=== PATIENT | female | born 1990 | race American Indian/Alaskan Native ===

== ENCOUNTER 2017-05-14 21:52 | Emergency (ER) | payer OTHER ==
[2017-05-14 22:32] VITALS: BMI 34.4
[2017-05-14 22:42] VITALS: TEMP 98.6
--- NOTE | 2017-05-14 22:42 | ED PDOC ---
Arrival/HPI - General Chief Complaint: ENT Problem Time Seen by Provider: 05/14/17 22:41 Historian: Patient - History of Present Illness Narrative History of Present Illness (Text): 05/14/17 22:41 26 y/o female, no significant pmh, nkda, last tetanus under 5 years ago, c/o lt. ear bleeding and muffling sound with water inside the left ear s/p poke the left ear with the q-tip at home while cleaning. Pt. stated that she can still hear from the left ear but feels clogged, no dizziness, no change in vision, no numbness or tingling, no rash, no other medical or psychological complaints. Past Medical History - Provider Review Nursing Documentation Reviewed: Yes - Infectious Disease Hx of Infectious Diseases: None - Cardiac Hx Cardiac Disorders: No - Pulmonary Hx Respiratory Disorders: No - Neurological Hx Neurological Disorder: No - HEENT Hx HEENT Disorder: No - Renal Hx Renal Disorder: No - Endocrine/Metabolic Hx Endocrine Disorders: No - Hematological/Oncological Hx Blood Disorders: No - Integumentary Hx Dermatological Disorder: No - Musculoskeletal/Rheumatological Hx Musculoskeletal Disorders: No - Gastrointestinal Hx Gastrointestinal Disorders: No - Genitourinary/Gynecological Hx Genitourinary Disorders: Yes Other/Comment: PCOS - Psychiatric Hx Psychophysiologic Disorder: No Hx Substance Use: No - Anesthesia Hx Anesthesia: No Family/Social History - Physician Review Nursing Documentation Reviewed: Yes Family/Social History: Unknown Family HX Smoking Status: Light Smoker < 10 Cigarettes Daily Hx Alcohol Use: Yes Frequency of alcohol use: Socially Hx Substance Use: No Allergies/Home Meds Allergies/Adverse Reactions: Allergies No Known Allergies Allergy (Verified 03/21/15 21:49) Review of Systems - Review of Systems Constitutional: absent: Fatigue, Fevers Eyes: absent: Vision Changes ENT: Other (Lt. ear pain and bleeding). absent: Hearing Changes Respiratory: absent: SOB, Cough Cardiovascular: absent: Chest Pain, Syncope Gastrointestinal: absent: Abdominal Pain, Diarrhea, Nausea, Vomiting Skin: absent: Rash, Pruritis Neurological: absent: Headache, Dizziness Psychiatric: absent: Anxiety, Depression Physical Exam Vital Signs Reviewed: Yes Vital Signs Temp Pulse Resp BP Pulse Ox 05/14/17 22:39 98.6 F 97 H 18 153/91 H 100 Temperature: Afebrile Blood Pressure: Normal Pulse: Regular Respiratory Rate: Normal Appearance: Positive for: Well-Appearing, Non-Toxic, Comfortable Pain Distress: Mild Mental Status: Positive for: Alert and Oriented X 3 - Systems Exam Head: Present: Atraumatic, Normocephalic Pupils: Present: PERRL Extroacular Muscles: Present: EOMI Conjunctiva: Present: Normal Ears: Present: Other (Ears: Lt. TM noted to have blood tinged dot noted and auditory canal with bright red blood with possible TM perforation, rt. TM katie color and intact, rt. auditory canal is non-erythematous, no mastoid tenderness , bilateral hearing is grossly equal. ) Mouth: Present: Moist Mucous Membranes Pharnyx: No: ERYTHEMA, EXUDATE, TONSILS ENLARGED Neck: Present: Normal Range of Motion, Trachea Midline. No: MIDLINE TENDERNESS , Paraspinal Tenderness, Lymphadenopathy Respiratory/Chest: Present: Clear to Auscultation, Good Air Exchange. No: Respiratory Distress, Accessory Muscle Use Cardiovascular: Present: Regular Rate and Rhythm, Normal S1, S2. No: Murmurs Abdomen: Present: Normal Bowel Sounds. No: Tenderness, Distention, Peritoneal Signs Back: Present: Normal Inspection Upper Extremity: Present: Normal Inspection. No: Cyanosis, Edema Lower Extremity: Present: Normal Inspection. No: Edema Neurological: Present: GCS=15, CN II-XII Intact, Speech Normal, Motor Func Grossly Intact, Gait Normal, Memory Normal Skin: Present: Warm, Dry, Normal Color. No: Rashes Psychiatric: Present: Alert, Oriented x 3, Normal Insight, Normal Concentration Medical Decision Making ED Course and Treatment: 05/14/17 23:01 -Augmentin and cipro otic -Discharge home with augmentin, cipro otic, naproxen for pain, keep the left ear dry and clean, follow up with your own pmd and ENT within 2 days, return to the ER for any new or worsening signs or symptoms. - PA / APPLICATION SYSTEMS ENGINEER / Resident Statement MD/DO has reviewed & agrees with the documentation as recorded. Disposition/Present on Arrival - Present on Arrival Any Indicators Present on Arrival: No History of DVT/PE: No History of Uncontrolled Diabetes: No Urinary Catheter: No History of Decub. Ulcer: No History Surgical Site Infection Following: None - Disposition Have Diagnosis and Disposition been Completed?: Yes Diagnosis: Ear injury, Ruptured ear drum Disposition: HOME/ ROUTINE Disposition Time: 23:02 Patient Plan: Discharge Patient Problems: Current Active Problems Problem Status Onset Ear injury Acute Ruptured ear drum Acute Condition: GOOD Additional Instructions: -Discharge home with augmentin, cipro otic, naproxen for pain, keep the left ear dry and clean, follow up with your own pmd and ENT within 2 days, return to the ER for any new or worsening signs or symptoms. Prescriptions: Amoxicillin/Clavulanate [Augmentin 875 MG-125 MG] 1 tab PO BID #20 tab Ciprofloxacin/Hydrocortisone [Cipro Hc Otic Suspension] 3 drop OT BID #1 bot Referrals: PCP,ERIK [Primary Care Provider] - Follow up with primary Jarad Reid DO [[facility]] - Follow up with primary Forms: WORK NOTE
[2017-05-14] MEDS ORDERED: Ciprofloxacin/Dexamethasone OTIC SUSP AS STA (22:56)
[2017-05-14] MEDS ORDERED: Amoxicillin-Clav 875-125 mg Tab PO STA (22:56)
[2017-05-15 00:03] VITALS: BP 150/74; PULSE 84; RESP 16; O2SAT 99
== END 2017-05-15 00:04 | disposition home or self-care (01) ==
LOC: ED 21:52
DX: H72.92 Unspecified perforation of tympanic membrane, left ear (principal); S09.91XA Unspecified injury of ear, initial encounter; W22.8XXA Striking against or struck by other objects, initial encounter; Y93.E8 Activity, other personal hygiene; F17.210 Nicotine dependence, cigarettes, uncomplicated

== ENCOUNTER 2017-08-05 09:59 | Emergency (ER) | payer BC ==
[2017-08-05 10:15] VITALS: TEMP 98.7
[2017-08-05 10:16] VITALS: BMI 36.5
[2017-08-05] MEDS ORDERED: Sodium Chloride 0.9% 500 ML IV STA (10:40)
--- NOTE | 2017-08-05 10:47 | ED PDOC ---
Arrival/HPI - General Chief Complaint: GI Problem Time Seen by Provider: 08/05/17 10:31 Historian: Patient - History of Present Illness Narrative History of Present Illness (Text): 08/05/17 10:36 A 26 year old female, with no significant past medical history, presents to the emergency department complaining of diarrhea for 2 days. Patient reports had 4 episodes of loose stool since 04:30 today. She mentions 3 days ago, prior to symptom occurring, having gone to a diner she has never been to before. Patient states last eating yesterday morning and has been afraid to eat anything else. Patient has been keeping well-hydrated and keeping down fluids. Notes also experiencing mild generalized abdominal ache described as a "bubbling" sensation. Denies dark or bloody stool. Denies rash. Denies headache. Denies neck pain. Denies vaginal bleeding or discharge. Denies dysuria or frequency. Denies recent travel. Denies recent antibiotic usage. No PMD Time/Duration: < week (2 days) Symptom Onset: Sudden Symptom Course: Unchanged Past Medical History - Provider Review Nursing Documentation Reviewed: Yes - Infectious Disease Hx of Infectious Diseases: None - Reproductive Menopause: No - Cardiac Hx Cardiac Disorders: No - Pulmonary Hx Respiratory Disorders: No - Neurological Hx Neurological Disorder: No - HEENT Hx HEENT Disorder: No - Renal Hx Renal Disorder: No - Endocrine/Metabolic Hx Endocrine Disorders: No - Hematological/Oncological Hx Blood Disorders: No - Integumentary Hx Dermatological Disorder: No - Musculoskeletal/Rheumatological Hx Musculoskeletal Disorders: No - Gastrointestinal Hx Gastrointestinal Disorders: No - Genitourinary/Gynecological Hx Genitourinary Disorders: Yes Other/Comment: PCOS - Psychiatric Hx Psychophysiologic Disorder: No Hx Substance Use: No - Anesthesia Hx Anesthesia: No Hx Anesthesia Reactions: No Hx Malignant Hyperthermia: No Family/Social History - Physician Review Nursing Documentation Reviewed: Yes Family/Social History: No Known Family HX Smoking Status: Light Smoker < 10 Cigarettes Daily Hx Alcohol Use: Yes Hx Substance Use: No Allergies/Home Meds Allergies/Adverse Reactions: Allergies No Known Allergies Allergy (Verified 03/21/15 21:49) Review of Systems - Review of Systems Constitutional: Other (hot flashes). absent: Night Sweats Eyes: absent: Eye Pain Respiratory: absent: SOB Cardiovascular: absent: Chest Pain Gastrointestinal: Abdominal Pain (abdominal aches described as "bubbling" sensation), Stool Changes (visibly bloody stool when wiping), Diarrhea. absent : Nausea, Vomiting, Hematochezia, Hematemesis Genitourinary Female: absent: Dysuria, Hematuria, Urine Output Changes Musculoskeletal: absent: Back Pain, Neck Pain Skin: absent: Rash Neurological: absent: Headache, Dizziness, Focal Weakness Hemo/Lymphatic: absent: Easy Bleeding Physical Exam - Physical Exam Narrative Physical Exam (Text): Head: Atraumatic. Normocephalic. Eyes: PERRL. EOMI. Conjunctivae are not pale. ENT: Mucous membranes are moist and intact. Oropharynx is clear and symmetric. Neck: Supple. Full ROM. No meningeal signs. Cardiovascular: Regular rate. Regular rhythm. Pulmonary/Chest: No evidence of respiratory distress. Abdominal: Soft and non-distended. There is no tenderness. No rebound, guarding, or rigidity. No organomegaly. Good bowel sounds. No lower abdominal tenderness. Back: No CVA tenderness. Extremities: No edema. No cyanosis. No clubbing. Full range of motion in all extremities. No calf tenderness. Skin: Skin is warm and dry. No petechiae. No purpura. Neurological: Motor and sensory exam intact. Normal speech. Psychiatric: Good eye contact. Normal interaction, affect, and behavior. Vital Signs Reviewed: Yes Vital Signs Temp Pulse Resp BP Pulse Ox 08/05/17 14:02 80 18 143/83 97 08/05/17 09:59 98.7 F 101 H 16 150/100 H 99 Temperature: Afebrile Blood Pressure: Hypertensive Appearance: Positive for: Well-Appearing, Non-Toxic, Comfortable Pain Distress: None Mental Status: Positive for: Alert and Oriented X 3 Medical Decision Making ED Course and Treatment: 08/05/17 10:39 Impression: 26 year old female with diarrhea, abdominal aches. Differential Diagnosis included but are not limited to: Plan: -- Labs -- Pepcid -- IV Fluids -- Urinalysis -- Reassess and disposition Prior Visits: Notes and results from previous visits were reviewed. Patient was last seen in the emergency department on 05/14/2017 for left ear bleed. Patient was discharged home. Progress Notes: Patient with no recent antibiotic usage. Patient with no recent travel. She is afebrile and nontoxic appearing. On my exam, no abdominal pain noted. She DENIES prior history of colitis or GI disease. Denies urinary symptoms although UA suggestive of possible UTI. No suprapubic pain and no cva tenderness. Patient given iv fluids, and on re-exam has no pain or discomfort. Not tachycardic. Tolerating po. BP reviewed with patient advised recheck with PMD but in ED no headache or chest pain or sob. Diarrhea for less than 48 hours and improved while observed in ED with only one loose nonbloody BM during ED observation. Advised follow-up with pmd, return for any new or persistent symptoms. - Lab Interpretations Lab Results: 08/05/17 11:00 08/05/17 11:00 Lab Results 08/05/17 11:00: Sodium 139, Potassium 3.7, Chloride 104, Carbon Dioxide 22, Anion Gap 16, BUN 9, Creatinine 0.8, Est GFR ( Amer) > 60, Est GFR (Non- Af Amer) > 60, Random Glucose 104, Calcium 9.1, Total Bilirubin 0.4, AST 31, ALT 37, Alkaline Phosphatase 47, Total Protein 8.0, Albumin 4.5, Globulin 3.6, Albumin/Globulin Ratio 1.2 08/05/17 11:00: Urine Color Yellow, Urine Appearance Clear, Urine pH 5.5, Ur Specific [place] >= 1.030, Urine Protein 30 H, Urine Glucose (UA) Negative, Urine Ketones 15 H, Urine Blood Trace-intact H, Urine Nitrate Negative, Urine Bilirubin Negative, Urine Urobilinogen 0.2, Ur Leukocyte Esterase Negative, Urine RBC 2 - 5, Urine WBC 0 - 2, Ur Epithelial Cells 6 - 8, Amorphous Sediment Few, Urine Bacteria Large, Urine Other Uyeast, Urine HCG, Qual Negative 08/05/17 11:00: WBC 4.9, RBC 4.67, Hgb 14.2, Hct 42.4, MCV 90.8, MCH 30.4, MCHC 33.5, RDW 12.2, Plt Count 256, MPV 10.2, Gran % 68.9 H, Lymph % (Auto) 23.5, [place] % (Auto) 7.4 H, Eos % (Auto) 0.0 L, Baso % (Auto) 0.2, Gran # 3.34, Lymph # (Auto) 1.1 L, [place] # (Auto) 0.4, Eos # (Auto) 0.0, Baso # (Auto) 0.01 - Medication Orders Current Medication Orders: Discontinued Medications Famotidine (Pepcid 20mg/50ml Premix) 20 mg IVPB STAT STA Stop: 08/05/17 10:50 Last Admin: 08/05/17 11:02 Dose: 20 mg eMAR Start Stop Document 08/05/17 11:02 EQ (Rec: 08/05/17 11:03 EQ [id number]) Intravenous Solution Start Date 08/05/17 Start Time 11:02 Sodium Chloride (Sodium Chloride 0.9%) 500 mls @ 1,000 mls/hr IV .Q30M STA Stop: 08/05/17 11:09 Last Admin: 08/05/17 11:03 Dose: 1,000 mls/hr eMAR Start Stop Document 08/05/17 11:03 EQ (Rec: 08/05/17 11:03 EQ [id number]) Intravenous Solution Start Date 08/05/17 Start Time 11:03 - Scribe Statement The provider has reviewed the documentation as recorded by the Kaykay Kingston Provider Scribe Attestation: All medical record entries made by the Ivoryibdyllan were at my direction and personally dictated by me. I have reviewed the chart and agree that the record accurately reflects my personal performance of the history, physical exam, medical decision making, and the department course for this patient. I have also personally directed, reviewed, and agree with the discharge instructions and disposition. Disposition/Present on Arrival - Present on Arrival Any Indicators Present on Arrival: No History of DVT/PE: No History of Uncontrolled Diabetes: No Urinary Catheter: No History of Decub. Ulcer: No History Surgical Site Infection Following: None - Disposition Have Diagnosis and Disposition been Completed?: Yes Diagnosis: Diarrhea, UTI (urinary tract infection) Disposition: HOME/ ROUTINE Disposition Time: 13:57 Patient Plan: Discharge Condition: GOOD Discharge Instructions (ExitCare): Urinary Tract Infections in Adults, Diarrhea and Traveler's Diarrhea, Adult (DC) Additional Instructions: For any fevers, any headaches, any chest pain or shortness of breath, any bloody or dark stool, any nausea or vomiting, any persistent or worsening of symptoms, any abdominal pain, any back pain, get rechecked. Prescriptions: Nitrofurantoin Macrocrystal [Nitrofurantoin] 100 mg PO BID #10 capsule [facility] [Primary Care Provider] - Follow up with primary Forms: [employer] (Italian)
[2017-08-05] MEDS ORDERED: Famotidine 20mg/50ml Premix IVPB STA (10:49)
[2017-08-05 11:38] LABS: PH,URINE 5.5 (4.7-8.0); URINE APPEARANCE CLEAR (CLEAR); URINE BILIRUBIN NEGATIVE (NEGATIVE); URINE BLOOD TRACE-INTACT (NEGATIVE); URINE COLOR YELLOW (YELLOW); URINE GLUCOSE (UA) NEGATIVE (NEGATIVE); URINE LEUKOCYTE ESTERASE NEGATIVE Leu/uL (NEGATIVE); URINE PROTEIN 30 mg/dL (<30 mg/dL); URINE UROBILINOGEN 0.2 E.U./dL (<1 E.U./dL)
[2017-08-05 11:39] LABS: ALB/GLOB RATIO 1.2 (1.1-1.8); ALBUMIN 4.5 g/dL (3.0-4.8); ALT/SGPT 37 U/L (7-56); AST/SGOT 31 U/L (14-36); BASO # 0.01 K/mm3 (0.0-2.0); BASO % 0.2 % (0.0-3.0); BLOOD UREA NITROGEN 9 mg/dL (7-21); CALCIUM 9.1 mg/dL (8.4-10.5); GFR AFRICAN-AMERICAN > 60; GFR NON-AFRICAN AMERICAN > 60; GRAN # 3.34 (1.4-6.5); GRAN % 68.9 % (50.0-68.0); HCG,QUALITATIVE URINE NEGATIVE (NEGATIVE); HEMOGLOBIN 14.2 g/dL (12.0-16.0); LYMPH # 1.1 (1.2-3.4); LYMPH % 23.5 % (22.0-35.0); MEAN CELL VOLUME 90.8 fl (80.0-105.0); MEAN CORPUSCULAR HEMOGLOBIN 30.4 pg (25.0-35.0); MEAN CORPUSCULAR HGB CONC 33.5 g/dl (31.0-37.0); MEAN PLATELET VOLUME 10.2 fl (7.0-11.0); MONO # 0.4 (0.1-0.6); MONO % 7.4 % (1.0-6.0); RBC 4.67 10^6/uL (3.5-6.1); RED CELL DISTRIBUTION WIDTH 12.2 % (11.5-14.5); WHITE BLOOD COUNT 4.9 10^3/ul (4.5-11.0)
[2017-08-05 11:45] LABS: URINE AMORPHOUS SEDIMENT FEW; URINE BACTERIA LARGE (NEG); URINE WBC 0 - 2 /hpf (0-6)
[2017-08-05 14:03] VITALS: BP 143/83; PULSE 80; RESP 18; O2SAT 97
== END 2017-08-05 14:19 | disposition home or self-care (01) ==
LOC: ED 09:59
DX: N39.0 Urinary tract infection, site not specified (principal); R19.7 Diarrhea, unspecified; F17.210 Nicotine dependence, cigarettes, uncomplicated
CPT/HCPCS: 80053; 81001; 84703; 85025; 99284; J7040

== ENCOUNTER 2017-11-06 04:44 | Emergency (ER) | payer SELFPAY ==
[2017-11-06 04:44] VITALS: BMI 36.5
[2017-11-06 04:53] VITALS: RESP 18
--- NOTE | 2017-11-06 05:32 | ED PDOC ---
Arrival/HPI - General Chief Complaint: ENT Problem Time Seen by Provider: 11/06/17 04:55 Historian: Patient - History of Present Illness Narrative History of Present Illness (Text): 11/06/17 05:25 Patient is a 27 year old female with no past medical history presenting with a two day hx of right sided sore throat. She has be using throat lozenges and has only gained minimal relief. She feels that her throat pain is causing pain in her right ear as well. She is not having any decrease in hearing. She is not having any difficulty swallowing. She is not having any difficulty breathing or cough. She denies fevers, chills, nausea, vomiting, diarrhea, constipation, chest pain, shortness of breath, cough, abdominal pain, numbness or tingling. Time/Duration: < week (2 days ) Symptom Onset: Gradual Symptom Course: Unchanged Quality: Other (soreness) Past Medical History - Provider Review Nursing Documentation Reviewed: Yes - Infectious Disease Hx of Infectious Diseases: None - Cardiac Hx Cardiac Disorders: No - Pulmonary Hx Respiratory Disorders: No - Neurological Hx Neurological Disorder: No - HEENT Hx HEENT Disorder: No - Renal Hx Renal Disorder: No - Endocrine/Metabolic Hx Endocrine Disorders: No - Hematological/Oncological Hx Blood Disorders: No - Integumentary Hx Dermatological Disorder: No - Musculoskeletal/Rheumatological Hx Musculoskeletal Disorders: No - Gastrointestinal Hx Gastrointestinal Disorders: No - Genitourinary/Gynecological Hx Genitourinary Disorders: Yes Other/Comment: PCOS - Psychiatric Hx Psychophysiologic Disorder: No Hx Substance Use: No - Anesthesia Hx Anesthesia: No Hx Anesthesia Reactions: No Hx Malignant Hyperthermia: No Family/Social History - Physician Review Nursing Documentation Reviewed: Yes Family/Social History: No Known Family HX Smoking Status: Light Smoker < 10 Cigarettes Daily Hx Alcohol Use: Yes Hx Substance Use: No Allergies/Home Meds Allergies/Adverse Reactions: Allergies No Known Allergies Allergy (Verified 03/21/15 21:49) Home Medications: Home Meds Medication Instructions Recorded Confirmed Norethindrone-E.estradiol-Iron 1 tab PO DAILY 11/06/17 11/06/17 [Tri-Legest Fe-28 Day Tablet] Review of Systems - Physician Review All systems were reviewed & negative as marked: Yes - Review of Systems Constitutional: Normal. absent: Fevers Eyes: Normal. absent: Vision Changes ENT: Sore Throat. absent: Rhinorrhea, Sinus Congestion Respiratory: Normal. absent: SOB, Cough Cardiovascular: Normal. absent: Chest Pain, Edema Gastrointestinal: Normal. absent: Abdominal Pain, Constipation, Diarrhea, Nausea, Vomiting Musculoskeletal: Normal. absent: Neck Pain Neurological: Normal. absent: Headache Physical Exam Vital Signs Reviewed: Yes Vital Signs Temp Pulse Resp BP Pulse Ox 11/06/17 04:52 98.7 F 101 H 18 132/81 98 Temperature: Afebrile Blood Pressure: Normal Pulse: Regular (88bpm on exam) Respiratory Rate: Normal Appearance: Positive for: Well-Appearing, Non-Toxic, Comfortable Pain Distress: None Mental Status: Positive for: Alert and Oriented X 3 - Systems Exam Head: Present: Atraumatic, Normocephalic. No: Tenderness Pupils: Present: PERRL Extroacular Muscles: Present: EOMI Conjunctiva: Present: Normal Ears: Present: Normal, NORMAL TM, Normal Canal. No: Erythema, TM Bulging, Fluid , TM Perf Mouth: Present: Moist Mucous Membranes, Normal Lips, Normal Tounge, Normal Teeth Pharnyx: Present: Normal. No: ERYTHEMA, EXUDATE, TONSILS ENLARGED, Uvular Deviation, Muffled/Hoarse Voice Nose (External): Present: Atraumatic Nose (Internal): Present: Normal Inspection, No Active Bleeding, Moist. No: Engorged, Rhinorrhea Neck: Present: Normal Range of Motion. No: MIDLINE TENDERNESS Respiratory/Chest: Present: Clear to Auscultation, Good Air Exchange. No: Respiratory Distress, Accessory Muscle Use Cardiovascular: Present: Regular Rate and Rhythm, Normal S1, S2. No: Murmurs Upper Extremity: Present: Normal Inspection. No: Edema Neurological: Present: GCS=15, Speech Normal, Motor Func Grossly Intact Skin: Present: Warm, Dry, Normal Color. No: Rashes Psychiatric: Present: Alert, Oriented x 3, Normal Insight, Normal Concentration Medical Decision Making ED Course and Treatment: 11/06/17 05:36 Order: * Rapid strep 11/06/17 05:56 Rapid strep test is negative. Patient is afebrile with normal exam (no throat erythema, exudates or tenderness). Due to two day history of symptoms, no antibiotics indicated at this time. Instructed patient to follow up with her primary care physician and continue with warm honey tea and throat lozenges for symptomatic relief. Patient states she understands and agrees. Re-evaluation Time: 05:56 Reassessment Condition: Re-examined, Unchanged - Lab Interpretations Lab Results: Lab Results 11/06/17 05:20: Grp A Beta Strep Ag Negative I have reviewed the lab results: Yes Disposition/Present on Arrival - Present on Arrival Any Indicators Present on Arrival: No History of DVT/PE: No History of Uncontrolled Diabetes: No Urinary Catheter: No History of Decub. Ulcer: No History Surgical Site Infection Following: None - Disposition Have Diagnosis and Disposition been Completed?: Yes Diagnosis: Sore throat Disposition: HOME/ ROUTINE Disposition Time: 05:54 Patient Plan: Discharge Condition: FAIR Discharge Instructions (ExitCare): Sore Throat, Adult (DC) Additional Instructions: Patient is to be discharged home and follow up with her primary care physician. Forms: [email or web address] ([place])
[2017-11-06 06:10] VITALS: BP 107/65; PULSE 93; TEMP 98.6; O2SAT 100
== END 2017-11-06 06:10 | disposition home or self-care (01) ==
LOC: ED 04:44
DX: J02.9 Acute pharyngitis, unspecified (principal); F17.210 Nicotine dependence, cigarettes, uncomplicated

== ENCOUNTER 2017-11-06 20:41 | Emergency (ER) | payer SELFPAY ==
[2017-11-06 20:41] VITALS: BMI 36.5
[2017-11-06 20:46] VITALS: RESP 16; TEMP 98.6; O2SAT 98
--- NOTE | 2017-11-06 21:00 | ED PDOC ---
Arrival/HPI - General Chief Complaint: ENT Problem Time Seen by Provider: 11/06/17 20:46 Historian: Patient - History of Present Illness Narrative History of Present Illness (Text): 11/06/17 20:57 Nat Gandhi is a 27 year old female, with no significant past medical history , who presents to the Emergency department complaining of sore throat for the past few days with associated right ear pain. Patient states she was seen earlier today and discharged home. Patient reports she has been taking Tylenol throughout the day but denies any significant relief. Patient denies any fever, chills, shortness of breath, nausea, vomiting, neck pain, headache, dizziness, or any other complaints. Time/Duration: < week Symptom Onset: Gradual Symptom Course: Unchanged Activities at Onset: Light Context: Home Past Medical History - Provider Review Nursing Documentation Reviewed: Yes - Infectious Disease Hx of Infectious Diseases: None - Cardiac Hx Cardiac Disorders: No - Pulmonary Hx Respiratory Disorders: No - Neurological Hx Neurological Disorder: No - HEENT Hx HEENT Disorder: No - Renal Hx Renal Disorder: No - Endocrine/Metabolic Hx Endocrine Disorders: No - Hematological/Oncological Hx Blood Disorders: No - Integumentary Hx Dermatological Disorder: No - Musculoskeletal/Rheumatological Hx Musculoskeletal Disorders: No - Gastrointestinal Hx Gastrointestinal Disorders: No - Genitourinary/Gynecological Hx Genitourinary Disorders: Yes Other/Comment: PCOS - Psychiatric Hx Psychophysiologic Disorder: No Hx Substance Use: No - Anesthesia Hx Anesthesia: No Hx Anesthesia Reactions: No Hx Malignant Hyperthermia: No Family/Social History - Physician Review Nursing Documentation Reviewed: Yes Family/Social History: Unknown Family HX Smoking Status: Light Smoker < 10 Cigarettes Daily Hx Alcohol Use: Yes Hx Substance Use: No Allergies/Home Meds Allergies/Adverse Reactions: Allergies No Known Allergies Allergy (Verified 11/06/17 20:43) Home Medications: Home Meds Medication Instructions Recorded Confirmed Norethindrone-E.estradiol-Iron 1 tab PO DAILY 11/06/17 11/06/17 [Tri-Legest Fe-28 Day Tablet] Review of Systems - Physician Review All systems were reviewed & negative as marked: Yes - Review of Systems Constitutional: Normal. absent: Fevers Eyes: Normal ENT: Sore Throat, Other (+right ear pain) Respiratory: Normal. absent: SOB Cardiovascular: Normal. absent: Chest Pain Gastrointestinal: Normal. absent: Abdominal Pain, Diarrhea, Nausea, Vomiting Genitourinary Female: Normal Musculoskeletal: Normal Skin: Normal Neurological: Normal Endocrine: Normal Hemo/Lymphatic: Normal Psychiatric: Normal Physical Exam Vital Signs Reviewed: Yes Vital Signs Temp Pulse Resp BP Pulse Ox 11/06/17 21:10 98.6 F 90 16 136/89 98 11/06/17 20:43 98.6 F 110 H 16 136/90 98 Temperature: Afebrile Blood Pressure: Normal Pulse: Regular Respiratory Rate: Normal Appearance: Positive for: Well-Appearing, Non-Toxic, Comfortable Pain Distress: None Mental Status: Positive for: Alert and Oriented X 3 - Systems Exam Head: Present: Atraumatic, Normocephalic Pupils: Present: PERRL Extroacular Muscles: Present: EOMI Conjunctiva: Present: Normal Ears: Present: Erythema (Erythema to right TM) Mouth: Present: Moist Mucous Membranes Pharnyx: Present: Normal. No: ERYTHEMA, EXUDATE, TONSILS ENLARGED, Peritonsilar Swelling, Uvular Deviation, Muffled/Hoarse Voice, Strider, Soft Palate/Uvular Edema Nose (External): Present: Atraumatic Nose (Internal): Present: Normal Inspection Neck: Present: Normal Range of Motion. No: Meningeal Signs, MIDLINE TENDERNESS , Paraspinal Tenderness Respiratory/Chest: Present: Clear to Auscultation, Good Air Exchange. No: Respiratory Distress, Accessory Muscle Use Cardiovascular: Present: Regular Rate and Rhythm, Normal S1, S2. No: Murmurs Abdomen: No: Tenderness, Distention, Peritoneal Signs Back: Present: Normal Inspection. No: CVA Tenderness, Midline Tenderness, Paraspinal Tenderness Upper Extremity: Present: Normal Inspection. No: Cyanosis, Edema Lower Extremity: Present: Normal Inspection. No: Edema Neurological: Present: GCS=15, CN II-XII Intact, Speech Normal Skin: Present: Warm, Dry, Normal Color. No: Rashes Psychiatric: Present: Alert, Oriented x 3, Normal Insight, Normal Concentration Medical Decision Making ED Course and Treatment: 11/06/17 20:57 Impression: 27 year old female complaining of sore throat and right ear pain. Differential Diagnosis included but are not limited to: otitis media vs. otitis externa Plan: -- Ultracet -- Zitromax -- Reassess and disposition Prior Visits: Notes and results from previous visits were reviewed. On 11/06/2017, pt was seen in the Emergency department for sore throat and right ear pain. Rapid Strep performed was negative and patient was d/c home with instructions to f/u with her PMD. Progress Notes: - Medication Orders Current Medication Orders: Discontinued Medications Azithromycin (Zithromax) 500 mg PO ONCE STA PRN Reason: Protocol Stop: 11/06/17 21:02 Last Admin: 11/06/17 21:16 Dose: 500 mg Tramadol/Acetaminophen (Ultracet 37.5/325 Mg) 1 tab PO ONCE STA Stop: 11/06/17 21:02 Last Admin: 11/06/17 21:16 Dose: 1 tab MAR Pain Assessment Document 11/06/17 21:16 MARYBEL (Rec: 11/06/17 21:16 RG [id number]) Pain Reassessment Is this a pain reassessment? Yes Location Pain Location Body Site Throat Description Description Constant - Scribe Statement The provider has reviewed the documentation as recorded by the Scribdyllan Bond All medical record entries made by the Scribdyllan were at my direction and personally dictated by me. I have reviewed the chart and agree that the record accurately reflects my personal performance of the history, physical exam, medical decision making, and the department course for this patient. I have also personally directed, reviewed, and agree with the discharge instructions and disposition. Disposition/Present on Arrival - Present on Arrival Any Indicators Present on Arrival: No History of DVT/PE: No History of Uncontrolled Diabetes: No Urinary Catheter: No History of Decub. Ulcer: No History Surgical Site Infection Following: None - Disposition Have Diagnosis and Disposition been Completed?: Yes Diagnosis: Otitis media, Pharyngitis Disposition: HOME/ ROUTINE Disposition Time: 21:03 Patient Plan: Discharge Condition: GOOD Discharge Instructions (ExitCare): Ear Infections (Otitis Media) (DC), Sore Throat, Adult (DC) Additional Instructions: Take meds as prescribed/drink plenty of cool liquids/follow up with your doctor this week Prescriptions: traMADol/Acetaminophen [Ultracet 325 MG-37.5 MG] 1 tab PO Q6 PRN #12 tab PRN Reason: Pain Azithromycin [Zithromax] 250 mg PO DAILY #6 tab Forms: [employer] (Uzbek)
[2017-11-06] MEDS ORDERED: TraMADol/Apap 37.5/325 mg Tab PO STA (21:01)
[2017-11-07 00:05] VITALS: BP 136/89; PULSE 90
== END 2017-11-06 22:20 | disposition home or self-care (01) ==
LOC: ED 20:41
DX: J02.9 Acute pharyngitis, unspecified (principal); H66.90 Otitis media, unspecified, unspecified ear; F17.210 Nicotine dependence, cigarettes, uncomplicated

== ENCOUNTER 2017-11-28 15:46 | Inpatient (IN) | payer OTHER ==
[2017-11-28 17:00] VITALS: BMI 39.1
[2017-11-28 17:14] LABS: URINE BILIRUBIN NEGATIVE (NEGATIVE); URINE BLOOD SMALL (NEGATIVE); URINE GLUCOSE (UA) >=1000 mg/dL (NEGATIVE); URINE LEUKOCYTE ESTERASE NEGATIVE Leu/uL (NEGATIVE); URINE PROTEIN NEGATIVE mg/dL (<30 mg/dL); URINE UROBILINOGEN 0.2 E.U./dL (<1 E.U./dL)
[2017-11-28 17:17] LABS: BASO # 0.01 K/mm3 (0.0-2.0); BASO % 0.1 % (0.0-3.0); EOS % 0.1 % (1.5-5.0); GRAN # 9.05 (1.4-6.5); GRAN % 83.9 % (50.0-68.0); HEMOGLOBIN 15.7 g/dL (12.0-16.0); LYMPH # 1.3 (1.2-3.4); MEAN CELL VOLUME 90.4 fl (80.0-105.0); MEAN CORPUSCULAR HEMOGLOBIN 30.7 pg (25.0-35.0); MEAN PLATELET VOLUME 12.9 fl (7.0-11.0); MONO # 0.4 (0.1-0.6); MONO % 3.9 % (1.0-6.0); RBC 5.11 10^6/uL (3.5-6.1); WHITE BLOOD COUNT 10.8 10^3/ul (4.5-11.0)
[2017-11-28 17:18] LABS: INR 1.02; PARTIAL THROMBOPLASTIN TIME 24.2 Seconds (25.1-36.5); PROTHROMBIN TIME 11.6 SECONDS (9.4-12.5)
[2017-11-28 17:22] LABS: ALB/GLOB RATIO 1.4 (1.1-1.8); ALBUMIN 5.2 g/dL (3.0-4.8); ALT/SGPT 16 U/L (7-56); AST/SGOT 15 U/L (14-36); BLOOD UREA NITROGEN 12 mg/dL (7-21); CALCIUM 9.5 mg/dL (8.4-10.5); GFR NON-AFRICAN AMERICAN 59
[2017-11-28] MEDS ORDERED: Sodium Chloride 0.9% 1,000 ML IV STA ×3 (17:23→17:55)
[2017-11-28] MEDS ORDERED: Insulin Regular 100 UNITS in Sodium Chloride 0.9% 99 ML IV PRN ×2 (17:27→18:27)
--- NOTE | 2017-11-28 17:30 | CARD ---
APPROVED REPORT Date of service: 11/28/2017 EKG Measurement Heart [id number] <Conclusion> Sinus tachycardia Otherwise normal ECG
[2017-11-28 17:42] LABS: ARTERIAL BLOOD GAS O2 SAT 98.7 % (95-98); ARTERIAL BLOOD GAS PCO2 18 mm/Hg (35-45); ARTERIAL BLOOD GAS TCO2 7.6 mmol.L (22-28)
--- NOTE | 2017-11-28 18:08 | ED PDOC ---
Arrival/HPI - General Chief Complaint: Female Genitourinary Time Seen by Provider: 11/28/17 16:45 Historian: Patient - History of Present Illness Narrative History of Present Illness (Text): 11/28/17 19:54 27-year-old female with a history of PCOS presents today with a 3 week history of vaginal bleeding. Patient states over the past few days she's been feeling dizzy. Patient denies headaches. Patient states she feels as if she is going to pass out and believes that is related to her vaginal bleeding. Pt states the bleeding is not heavy, and she has only used 1 tampon today. She denies abdominal pain. Denies chest pain or shortness of breath. She denies urinary symptoms. Patient denies a history of diabetes. Denies . No other complaints Past Medical History - Provider Review Nursing Documentation Reviewed: Yes - Travel History Have you recently traveled outside [place] w/in the past 3 mons?: No - Infectious Disease Hx of Infectious Diseases: None - Cardiac Hx Cardiac Disorders: No - Pulmonary Hx Respiratory Disorders: No - Neurological Hx Neurological Disorder: No - HEENT Hx HEENT Disorder: No - Renal Hx Renal Disorder: No - Endocrine/Metabolic Hx Endocrine Disorders: No - Hematological/Oncological Hx Blood Disorders: No - Integumentary Hx Dermatological Disorder: No - Musculoskeletal/Rheumatological Hx Musculoskeletal Disorders: No - Gastrointestinal Hx Gastrointestinal Disorders: No - Genitourinary/Gynecological Hx Genitourinary Disorders: Yes Other/Comment: PCOS - Psychiatric Hx Psychophysiologic Disorder: No Hx Substance Use: No - Anesthesia Hx Anesthesia: No Hx Anesthesia Reactions: No Hx Malignant Hyperthermia: No Family/Social History - Physician Review Nursing Documentation Reviewed: Yes Family/Social History: Unknown Family HX Smoking Status: Light Smoker < 10 Cigarettes Daily Hx Alcohol Use: Yes Hx Substance Use: No Allergies/Home Meds Allergies/Adverse Reactions: Allergies No Known Allergies Allergy (Verified 11/28/17 16:29) Home Medications: Home Meds Medication Instructions Recorded Confirmed No Known Home Med 11/28/17 11/28/17 Review of Systems - Review of Systems Constitutional: Fatigue. absent: Fevers ENT: absent: Sore Throat, Sinus Congestion Respiratory: absent: SOB, Cough Cardiovascular: absent: Chest Pain, Palpitations Gastrointestinal: Abdominal Pain (+ minimal lower pelvic cramping). absent: Nausea, Vomiting Genitourinary Female: Vaginal Bleeding. absent: Dysuria, Frequency, Hematuria Musculoskeletal: absent: Arthralgias, Back Pain, Neck Pain Skin: absent: Rash, Pruritis Neurological: Dizziness. absent: Headache Psychiatric: absent: Anxiety, Depression Physical Exam Vital Signs Reviewed: Yes Vital Signs Temp Pulse Resp BP Pulse Ox 11/28/17 19:03 107 H 18 145/63 100 11/28/17 16:24 98.2 F 120 H 18 137/109 H 98 Temperature: Afebrile Blood Pressure: Hypertensive Pulse: Tachycardic Respiratory Rate: Normal Appearance: Positive for: Well-Appearing, Non-Toxic, Comfortable Pain Distress: None Mental Status: Positive for: Alert and Oriented X 3 - Systems Exam Head: Present: Atraumatic Mouth: Present: Moist Mucous Membranes Neck: Present: Normal Range of Motion Respiratory/Chest: Present: Clear to Auscultation Cardiovascular: Present: Tachycardic. No: Murmurs Abdomen: No: Tenderness, Distention, Rebound, Guarding Back: Present: Normal Inspection. No: CVA Tenderness, Midline Tenderness, Paraspinal Tenderness Upper Extremity: Present: Normal ROM Lower Extremity: Present: Normal ROM Neurological: Present: GCS=15, Speech Normal Skin: Present: Warm, Dry, Normal Color. No: Rashes Psychiatric: Present: Alert, Oriented x 3 Medical Decision Making ED Course and Treatment: 11/28/17 20:10 27-year-old female with dizziness and vaginal bleeding CBC within normal limits CMP: Glucose 1012 , carbon dioxide 7 cxr; wnl ekg; sinus tachycardia at 111 bpm normal axis no ST elevations Lactate 2.8 ABG: ph; 7.2 co2; 18 hc03: 7 Patient was seen and evaluated by Dr. Nunez Patient was given 3L normal saline IV bolus and started on insulin drip. DR. nunez discussed the case with the automotive professional dr. Torres who saw patient at beside. all results discussed with patient in depth. pt alert and oriented; no distress. impression; DKA, vaginal bleeding admit to ICU - Lab Interpretations Lab Results: 11/28/17 16:45 11/28/17 16:45 Lab Results 11/28/17 17:39: pCO2 18 L*, pO2 114.0 H, HCO3 7.0 L*, ABG pH 7.20 L, ABG Total CO2 7.6 L, ABG O2 Saturation 98.7 H, ABG Base Excess -18.8 L, ABG Potassium 4.1 , Glucose > 750 H*, Lactate 2.8 H, FiO2 21.0, Sodium 127.0 L, Chloride 93.0 L, Arterial Blood Potassium 4.1 11/28/17 16:45: Serum Osmolality 324 H 11/28/17 16:45: Lactate Dehydrogenase 373, Total Creatine Kinase 126, Troponin I < 0.01 11/28/17 16:45: WBC 10.8 D, RBC 5.11, Hgb 15.7, Hct 46.2, MCV 90.4, MCH 30.7, MCHC 34.0, RDW 13.0, Plt Count 296, MPV 12.9 H, Gran % 83.9 H, Lymph % (Auto) 12.0 L, [place] % (Auto) 3.9, Eos % (Auto) 0.1 L, Baso % (Auto) 0.1, Gran # 9.05 H , Lymph # (Auto) 1.3, [place] # (Auto) 0.4, Eos # (Auto) 0.0, Baso # (Auto) 0.01 11/28/17 16:45: Sodium 126 L, Potassium 4.9, Chloride 88 L, Carbon Dioxide 7 L D , Anion Gap 36 H, BUN 12, Creatinine 1.1, Est GFR ( Amer) > 60, Est GFR ( Non-Af Amer) 59, Random Glucose 1011 H* D, Calcium 9.5, Total Bilirubin 0.6, AST 15, ALT 16, Alkaline Phosphatase 116, Total Protein 8.9 H, Albumin 5.2 H, Globulin 3.7, Albumin/Globulin Ratio 1.4 11/28/17 16:45: Urine Color Colorless, Urine Appearance Clear, Urine pH 6.0, Ur Specific [place] 1.015, Urine Protein Negative, Urine Glucose (UA) >=1000, Urine Ketones >=80, Urine Blood Small H, Urine Nitrate Negative, Urine Bilirubin Negative, Urine Urobilinogen 0.2, Ur Leukocyte Esterase Negative, Urine RBC 10 - 15, Urine WBC 5 - 10, Ur Epithelial Cells 6 - 8 11/28/17 16:45: PT 11.6, INR 1.02, APTT 24.2 L - RAD Interpretation Radiology Orders: 11/28/17 17:33 CHEST PORTABLE [RAD] Stat - Medication Orders Current Medication Orders: Heparin Sodium (Porcine) (Heparin) 5,000 units SC DAILY MILADY PRN Reason: Protocol Insulin Human Regular 100 (units/ Sodium Chloride) 100 mls @ 12 mls/hr IV .Q8H20M PRN; Protocol; 12 UNITS/HR PRN Reason: TITRATE PER MD ORDER Last Admin: 11/28/17 18:56 Dose: 12 units/hr, 12 mls/hr eMAR Start Stop Document 11/28/17 18:56 GMD (Rec: 11/28/17 19:01 [id number] Intravenous Solution Start Date 11/28/17 Start Time 18:56 Titration Intervention Document 11/28/17 18:56 GMD (Rec: 11/28/17 19:01 [id number][facility] Titration Intake Waste Amount 0 Container Volume 100 Titration Dosing Titration Dose 12 IV Rate 12 Intake/Decrease Started Sodium Chloride (Sodium Chloride 0.9%) 1,000 mls @ 100 mls/hr IV .Q10H MILADY Pantoprazole Sodium (Protonix Inj) 40 mg IVP DAILY MILADY Discontinued Medications Sodium Chloride (Sodium Chloride 0.9%) 1,000 mls @ 999 mls/hr IV .Q1H1M STA Stop: 11/28/17 18:23 Last Admin: 11/28/17 18:19 Dose: 999 mls/hr eMAR Start Stop Document 11/28/17 18:19 GMD (Rec: 11/28/17 18:19 [id number][facility] Intravenous Solution Start Date 11/28/17 Start Time 18:19 End Date 11/28/17 End time 19:19 Total Infusion Time 60 Sodium Chloride (Sodium Chloride 0.9%) 1,000 mls @ 999 mls/hr IV .Q1H1M STA Stop: 11/28/17 18:27 Last Admin: 11/28/17 18:37 Dose: 999 mls/hr eMAR Start Stop Document 11/28/17 18:37 GMD (Rec: 11/28/17 18:37 [id number][facility] Intravenous Solution Start Date 11/28/17 Start Time 18:37 End Date 11/28/17 End time 19:37 Total Infusion Time 60 Sodium Chloride (Sodium Chloride 0.9%) 1,000 mls @ 999 mls/hr IV .Q1H1M STA Stop: 11/28/17 18:55 Last Admin: 11/28/17 19:41 Dose: 999 mls/hr eMAR Start Stop Document 11/28/17 19:41 GMD (Rec: 11/28/17 19:42 GMD [id number]) Intravenous Solution Start Date 11/28/17 Start Time 19:41 End Date 11/28/17 End time 20:41 Total Infusion Time 60 Disposition/Present on Arrival - Present on Arrival Any Indicators Present on Arrival: No History of DVT/PE: No History of Uncontrolled Diabetes: No Urinary Catheter: No History of Decub. Ulcer: No History Surgical Site Infection Following: None - Disposition Have Diagnosis and Disposition been Completed?: Yes Diagnosis: DKA (diabetic ketoacidosis), Vaginal bleeding Disposition: HOSPITALIZED Disposition Time: 18:01 Patient Plan: ICU Patient Problems: Current Active Problems Problem Status Onset DKA (diabetic ketoacidosis) Acute Vaginal bleeding Acute Condition: CRITICAL
[2017-11-28 18:09] LABS: URINE APPEARANCE CLEAR (CLEAR); URINE COLOR COLORLESS (YELLOW)
--- NOTE | 2017-11-28 18:22 | CP.PCM.CON ---
<Guzman Santamaria - Last Filed: 11/28/17 18:28> History of Present Illness - History of Present Illness History of Present Illness: Guzman Santamaria, PGY-1 ICU Consult Note This is a 27 year old female who denies any PMH presenting to the hospital for one week history of generalized weakness, fatigue, increased thirst and urinary frequency. She states she was in the ED recently for ear infection and oral thrush. She denies any recent travel, new medications, sick contacts and recent lifestyle changes. She currently admits to fatigue and urinary frequency and denies CP, SOB, abdominal pain, fevers, chills, back pain, dysuria, hematuria, hematochezia, headaches, swelling, nausea and vomiting. 12 point ROS noted here , otherwise unremarkable. She received 3 liters normal saline in ED and was started on insulin drip. She will be transferred to ICU for management of likely DKA. PMH: denies SH: smoked for 4 years and and quit in 06/2017. Drinks occasionally, denies drug use FH: denies Sx: denies Meds: denies PMD: denies Past Patient History - Infectious Disease Hx of Infectious Diseases: None - Past Social History Smoking Status: Light Smoker < 10 Cigarettes Daily - CARDIAC Hx Cardiac Disorders: No - PULMONARY Hx Respiratory Disorders: No - NEUROLOGICAL Hx Neurological Disorder: No - HEENT Hx HEENT Problems: No - RENAL Hx Chronic Kidney Disease: No - ENDOCRINE/METABOLIC Hx Endocrine Disorders: No - HEMATOLOGICAL/ONCOLOGICAL Hx Blood Disorders: No - INTEGUMENTARY Hx Dermatological Problems: No - MUSCULOSKELETAL/RHEUMATOLOGICAL Hx Musculoskeletal Disorders: No - GASTROINTESTINAL Hx Gastrointestinal Disorders: No - GENITOURINARY/GYNECOLOGICAL Hx Genitourinary Disorders: Yes Other/Comment: PCOS - PSYCHIATRIC Hx Psychophysiologic Disorder: No Hx Substance Use: No - SURGICAL HISTORY Hx Surgeries: No - ANESTHESIA Hx Anesthesia: No Hx Anesthesia Reactions: No Hx Malignant Hyperthermia: No Meds Allergies/Adverse Reactions: Allergies Allergy/AdvReac Type Severity Reaction Status Date / Time No Known Allergies Allergy Verified 11/28/17 16:29 - Medications Medications: Current Medications Sodium Chloride (Sodium Chloride 0.9%) 1,000 mls @ 999 mls/hr IV .Q1H1M STA Stop: 11/28/17 18:23 Sodium Chloride (Sodium Chloride 0.9%) 1,000 mls @ 999 mls/hr IV .Q1H1M STA Stop: 11/28/17 18:27 Insulin Human Regular 100 (units/ Sodium Chloride) 100 mls @ 17 mls/hr IV .Q5H53M PRN; Protocol; 0.15 UNITS/KG/HR PRN Reason: TITRATE PER MD ORDER Sodium Chloride (Sodium Chloride 0.9%) 1,000 mls @ 999 mls/hr IV .Q1H1M STA Stop: 11/28/17 18:55 Physical Exam - Constitutional Appears: No Acute Distress - Head Exam Head Exam: ATRAUMATIC, NORMAL INSPECTION - Eye Exam Eye Exam: EOMI, PERRL Pupil Exam: PERRL - Neck Exam Neck exam: Positive for: Normal Inspection - Respiratory Exam Respiratory Exam: Clear to Auscultation Bilateral. absent: Respiratory Distress - Cardiovascular Exam Cardiovascular Exam: REGULAR RHYTHM, +S1, +S2 - GI/Abdominal Exam GI & Abdominal Exam: Normal Bowel Sounds. absent: Guarding - Extremities Exam Extremities exam: Positive for: normal inspection, pedal pulses present - Back Exam Back exam: NORMAL INSPECTION - Neurological Exam Neurological exam: CN II-XII Intact, Oriented x3 - Psychiatric Exam Psychiatric exam: Normal Affect - Skin Skin Exam: Dry, Normal Color Results - Vital Signs Recent Vital Signs: Last Vital Signs Temp 98.2 F 11/28/17 16:24 Pulse 120 H 11/28/17 16:24 Resp 18 11/28/17 16:24 BP 137/109 H 11/28/17 16:24 Pulse Ox 98 11/28/17 16:24 - Labs Result Diagrams: 11/28/17 16:45 11/28/17 16:45 Assessment & Plan - Assessment and Plan (Free Text) Assessment: This is a 27 year old female who denies any PMH presenting to ICU for management of likely DKA. Glucose noted to be elevated at 1,011, GAP of 31 and urine positive for ketones. Plan: Neuro: -maintain normothermia -AAO x3, moving extremities spontaneously past midline Cardio: -maintain MAP>65 -will monitor vitals including HR and BP closely -lipid panel pending Lungs: -SaO2 >90% -supplementary O2 PRN -CXR pending Renal: -maintain euvolemia -avoid nephrotoxic agents, hypochloremia -replace electrolytes as needed -BUN/Cr WNL -ABG today reads pH/pO2/pCO2/bicarb of 7.2/114/18/7 significant for anion gap metabolic acidosis 2/2 DKA -GAP at 31 -urine shows ketones and >1000 glucose -received 3 liters NS in ED -NS @ 100 Heme: -Hg today is WNL -DVT ppx with heparin 5k Endo: -maintain euglycemia -currently receiving insulin drip at 12 units/hour -finger stick q1 -Alc pending ID: -WBC is WNL, afebrile -blood culture, urine culture pending -HIV panel pending -GI: -NPO diet -GI prophylaxis with protonix <Paula Torres - Last Filed: 11/28/17 18:55> Meds - Medications Medications: Current Medications Heparin Sodium (Porcine) (Heparin) 5,000 units SC DAILY MILADY PRN Reason: Protocol Sodium Chloride (Sodium Chloride 0.9%) 1,000 mls @ 999 mls/hr IV .Q1H1M STA Stop: 11/28/17 18:55 Insulin Human Regular 100 (units/ Sodium Chloride) 100 mls @ 12 mls/hr IV .Q8H20M PRN; Protocol; 12 UNITS/HR PRN Reason: TITRATE PER MD ORDER Sodium Chloride (Sodium Chloride 0.9%) 1,000 mls @ 100 mls/hr IV .Q10H MILADY Pantoprazole Sodium (Protonix Inj) 40 mg IVP DAILY MILADY Results - Vital Signs Recent Vital Signs: Last Vital Signs Temp 98.2 F 11/28/17 16:24 Pulse 120 H 11/28/17 16:24 Resp 18 11/28/17 16:24 BP 137/109 H 11/28/17 16:24 Pulse Ox 98 11/28/17 16:24 - Labs Result Diagrams: 11/28/17 16:45 11/28/17 16:45 Labs: Laboratory Results - last 24 hr 11/28/17 18:46 POC Glucose (mg/dL) > 500 H* Addendum Addendum: 11/28/17 18:54 ICU Attending Addendum: Patient seen and examined. Case reviewed on round with housestaff. Agree with resident note above with the following additions/exceptions: This is a 27F with hx of PCOS who presents feeling unwell. She reports having her period for 3 weeks however no fevers, no chills. In the ED she was found to be in profound DKA. Her pH was 7.2 with a serum bicarb of 7 Gluc > 750 urine ketones >80 She does not have a known dx of diabetes. We will admit her to ICU Atleast 3L NS IV upfront generous with fluids replete K Insulin drip changes fluids to d5 when blood sugar reaches 250 serial [id number] BMP with mg and phos replete K if remails below 5 monitor urine output check A1c and lipid profile diabetes education nystatin swish for oral thrush Rest of care as noted above. Paula Torres MD Incident Commander
[2017-11-28] MEDS ORDERED: Sodium Chloride 0.9% 1,000 ML IV SCH (18:45)
[2017-11-28 18:49] LABS: TROPONIN I < 0.01 ng/mL
--- NOTE | 2017-11-28 20:07 | CP.PCM.HP ---
History of Present Illness - History of Present Illness History of Present Illness: Internal Medicine (Hospitalist) H&P Ms. Gandhi is a 27 year old female with a past medical history significant for PCOS who presents with three weeks of vaginal bleeding and one week of generalized weakness, polydipsia and polyuria. Patient reports that for the past three weeks she has had light vaginal bleeding requiring one to two tampons daily. Patient states that she normally has regular monthly menses without complications or heavy bleeding and has never experienced this in the past. She denies any fevers, chills, hematuria, dysuria, vaginal discharge, abdominal pain/cramping/bloating, or any new skin lesions. She does endorse a history of regular [employer] follow up but that her [employer] SANDER just retired last week. She also reports that for the past week she has had generalized weakness with an insatiable thirst and increased urine output. She has never experienced this in the past. She endorses that she has been drinking "gallons" of juice and linda lynette without any relief and so she decided to come in for further evaluation. She denies any other complaints including headache, chest pain, palpitations, SOB, cough, wheezing, sputum production, abdominal pain, N/V/D/C, melena, hematemesis, any recent travel, new medications, sick contacts or any recent lifestyle changes. PMH: PCOS PSH: Denies Family History: Maternal Grandmother-Ovarian Cancer Social History: Former smoker (smoked less than half of a pack for 4 years and and quit in 06/2017), social alcohol use, and denies illicit drug use Allergies: NKDA Home Medications: As per JUN PMD: None Present on Admission - Present on Admission Any Indicators Present on Admission: No Review of Systems - Review of Systems Review of Systems: As stated in HPI, otherwise negative Past Patient History - Infectious Disease Hx of Infectious Diseases: None - Past Social History Smoking Status: Light Smoker < 10 Cigarettes Daily - CARDIAC Hx Cardiac Disorders: No - PULMONARY Hx Respiratory Disorders: No - NEUROLOGICAL Hx Neurological Disorder: No - HEENT Hx HEENT Problems: No - RENAL Hx Chronic Kidney Disease: No - ENDOCRINE/METABOLIC Hx Endocrine Disorders: No - HEMATOLOGICAL/ONCOLOGICAL Hx Blood Disorders: No - INTEGUMENTARY Hx Dermatological Problems: No - MUSCULOSKELETAL/RHEUMATOLOGICAL Hx Musculoskeletal Disorders: No - GASTROINTESTINAL Hx Gastrointestinal Disorders: No - GENITOURINARY/GYNECOLOGICAL Hx Genitourinary Disorders: Yes Other/Comment: PCOS - PSYCHIATRIC Hx Psychophysiologic Disorder: No Hx Substance Use: No - SURGICAL HISTORY Hx Surgeries: No - ANESTHESIA Hx Anesthesia: No Hx Anesthesia Reactions: No Hx Malignant Hyperthermia: No Meds Allergies/Adverse Reactions: Allergies Allergy/AdvReac Type Severity Reaction Status Date / Time No Known Allergies Allergy Verified 11/28/17 16:29 Physical Exam - Constitutional Appears: Non-toxic, No Acute Distress - Head Exam Head Exam: ATRAUMATIC, NORMOCEPHALIC - Eye Exam Eye Exam: EOMI, Normal appearance, PERRL - ENT Exam ENT Exam: Mucous Membranes Dry. absent: Normal Oropharynx (Oral thrush) - Neck Exam Neck exam: Positive for: Full Rom, Normal Inspection. Negative for: Lymphadenopathy, Tenderness - Respiratory Exam Respiratory Exam: Clear to Auscultation Bilateral, NORMAL BREATHING PATTERN. absent: Accessory Muscle Use, Chest Wall Tenderness, Decreased Breath Sounds, Prolonged Expiratory Phase, Rales, Rhonchi, Wheezes, Respiratory Distress, Stridor - Cardiovascular Exam Cardiovascular Exam: REGULAR RHYTHM, RRR, +S1, +S2. absent: Bradycardia, Tachycardia, Clicks, Diastolic murmur, Gallop, Irregular Rhythm, JVD, Rubs, +S4 , Systolic Murmur - GI/Abdominal Exam GI & Abdominal Exam: Normal Bowel Sounds, Soft. absent: Bruit, Diminished Bowel Sounds, Distended, Firm, Guarding, Hernia, Hyperactive Bowel Sounds, Hypoactive Bowel Sounds, Mass, Organomegaly, Pulsatile Mass, Rebound, Rigid, Tenderness - Extremities Exam Extremities exam: Positive for: full ROM, normal capillary refill, normal inspection, pedal pulses present. Negative for: calf tenderness, joint swelling , pedal edema, tenderness - Back Exam Back exam: NORMAL INSPECTION - Neurological Exam Neurological exam: Alert, Oriented x3 - Skin Skin Exam: Dry, Intact, Normal Color, Warm Results - Vital Signs Recent Vital Signs: Last Vital Signs Temp 98.2 F 11/28/17 16:24 Pulse 107 H 11/28/17 19:03 Resp 18 11/28/17 19:03 BP 145/63 11/28/17 19:03 Pulse Ox 100 11/28/17 19:03 - Labs Result Diagrams: 11/28/17 16:45 11/28/17 20:20 Labs: Laboratory Results - last 24 hr 11/28/17 11/28/17 11/28/17 18:46 19:00 19:45 POC Glucose (mg/dL) > 500 H* > 500 H* BBK History Checked No verified bt Assessment & Plan - Assessment and Plan (Free Text) Assessment: 27 year old female with a past medical history significant for PCOS who presents with three weeks of vaginal bleeding and one week of generalized weakness, polydipsia and polyuria. Patient was found to be in DKA and was started on an insulin drip, IVF and was admitted to the ICU. Plan: 1. DKA -Insulin Drip on DKA Algorithm 2 -Normal Saline at 100mls/hr -Q4 BMP -Q1 Fingerstick Blood Glucose -NPO -Ems Coordinator consulted, all recommendations appreciated 2. Vaginal Bleeding -Currently HDS and H/H 15.7/46.2 -Holding chemical VTE prophylaxis -Will continue monitor with daily CBC's -Outpatient [employer] follow up recommendation on discharge 3. Oral Thrush -Continue Diflucan and Nystatin Oral Solution -HIV test pending 4. History of PCOS -Continue home [facility] Prophylaxis: Protonix DVT Prophylaxis: SCD's Patient seen and case discussed with ICU attending, Dr. Cheng. Esteban PGY2 - Date & Time Date: 11/28/17 Time: 20:07 Decision To Admit - Pt Status Changed To: Hospital Disposition Of: Inpatient Admission - Admit Certification Admit to Inpatient:: After my assessment, the patient will require hospitalization for at least two midnights. This is because of the severity of symptoms shown, intensity of services needed, and/or the medical risk in this patient being treated as an outpatient. - . Bed Request Type: Critical Care
[2017-11-28 21:00] LABS: LDL CHOLESTEROL 175 mg/dL (0-129)
[2017-11-28] MEDS ORDERED: Pneumococcal 23-Valent Vaccine IM ONE (21:04)
[2017-11-28 21:06] LABS: BLOOD UREA NITROGEN 10 mg/dL (7-21); CALCIUM 8.2 mg/dL (8.4-10.5); GFR NON-AFRICAN AMERICAN > 60; HDL CHOLESTEROL 39 mg/dL (29-60)
[2017-11-28] MEDS: Nystatin 100,000 Units/ml Oral Susp 5 ml UD PO SCH (22:03)
[2017-11-28 22:09] LABS: VENOUS BLOOD GAS BASE EXCESS -14.7 mmol/L (0.0-2.0); VENOUS BLOOD GAS PO2 29 mm/Hg (30-55)
[2017-11-28] MEDS: [UNRECOGNIZED DRUG - OTHER] PO SCH (22:11)
[2017-11-28] MEDS: ESTRADIOL VALERATE PO SCH (22:11)
[2017-11-28 22:13] LABS: VENOUS BLOOD PH 7.16 (7.32-7.43)
[2017-11-29 00:52] LABS: BLOOD UREA NITROGEN 9 mg/dL (7-21); GFR NON-AFRICAN AMERICAN > 60
[2017-11-29] MEDS ORDERED: Dextrose 5%/0.45% NS 1,000 ML IV SCH (04:45)
[2017-11-29 04:54] LABS: VENOUS BLOOD GAS BASE EXCESS -9.9 mmol/L (0.0-2.0); VENOUS BLOOD GAS PO2 60 mm/Hg (30-55); VENOUS BLOOD PH 7.25 (7.32-7.43)
[2017-11-29 05:03] LABS: BLOOD UREA NITROGEN 8 mg/dL (7-21); CALCIUM 7.9 mg/dL (8.4-10.5); GFR NON-AFRICAN AMERICAN > 60
[2017-11-29 05:19] LABS: BASO # 0.02 K/mm3 (0.0-2.0); BASO % 0.2 % (0.0-3.0); EOS % 0.3 % (1.5-5.0); GRAN # 5.67 (1.4-6.5); GRAN % 56.2 % (50.0-68.0); HEMOGLOBIN 13.4 g/dL (12.0-16.0); LYMPH # 3.3 (1.2-3.4); LYMPH % 32.3 % (22.0-35.0); MEAN CELL VOLUME 85.6 fl (80.0-105.0); MEAN CORPUSCULAR HEMOGLOBIN 30.2 pg (25.0-35.0); MEAN CORPUSCULAR HGB CONC 35.3 g/dl (31.0-37.0); MEAN PLATELET VOLUME 12.3 fl (7.0-11.0); MONO # 1.1 (0.1-0.6); RBC 4.44 10^6/uL (3.5-6.1); RED CELL DISTRIBUTION WIDTH 12.4 % (11.5-14.5); WHITE BLOOD COUNT 10.1 10^3/ul (4.5-11.0)
[2017-11-29 07:59] LABS: BLOOD UREA NITROGEN 9 mg/dL (7-21); GFR NON-AFRICAN AMERICAN > 60
[2017-11-29] MEDS ORDERED: Insulin Detemir 100 units/ml Vial (Levemir) SC ONE (08:10)
[2017-11-29] MEDS ORDERED: Dextrose 50% SYRINGE Inj (50 ml) IV PRN (08:10)
--- NOTE | 2017-11-29 08:48 | PN ---
Copied To: Zack Shah MD Attending MD: Zack Shah MD DATE: 11/29/2017 EDGER HAND NOTE LOCATION: At [facility]. SUBJECTIVE: The patient is resting in bed very comfortable. Still on insulin drip and getting IV fluids. No nausea or vomiting. No diarrhea. No abdominal pain. No chest pain. No shortness of breath. No fever, chills. PHYSICAL EXAMINATION: VITAL SIGNS: Physical exam note that her temperature is 98, her pulse is 92, respirations of 20 and BP is 138/76. SKIN: Warm and dry. HEENT: Head atraumatic, normocephalic. Eyes reactive to light. Ears, nose and throat seemed to be within normal limits. NECK: Supple. No JVD. No thyroid enlargement. No lymph nodes. HEART: Has a regular rate and rhythm. Normal S1, S2. LUNGS: Reveal good breath sounds bilaterally. ABDOMEN: Soft. Decreased bowel sounds. GENITALIA AND RECTAL: Deferred. MUSCULOSKELETAL: No joint deformities. EXTREMITIES: Reveal no significant edema. NEUROLOGICAL: She seemed to be grossly intact. LABORATORY DATA: As far as her laboratories are concerned, white count is 10.1, hemoglobin is 13.4, hematocrit 38 and platelets of 235,000. Sodium is 139, potassium 3.6, chloride 110, CO2 of 16 with anion gap of 17 and BUN of 8, creatinine of 0.7, glucose of 267. IMPRESSION: As far as my impression, this patient has new-onset diabetes, presenting with diabetic ketoacidosis, has some obesity and noted to have some vaginal bleeding as well. Vaginal bleeding etiology unclear. The patient will be getting D5 and a half. We are going to change her to glucose checks of before meals and at bedtime and start her on subcu insulin. We will discontinue the insulin drip. We will start her on a diabetic diet. The patient is getting Diflucan and Protonix as well. We will continue to monitor closely and treat aggressively along with the other consultants and the primary care doctor. Zack Shah MD
[2017-11-29] MEDS: [UNRECOGNIZED DRUG - OTHER] PO SCH (09:03)
[2017-11-29] MEDS: Nystatin 100,000 Units/ml Oral Susp 5 ml UD PO SCH ×3 (09:03→17:06)
[2017-11-29] MEDS: ESTRADIOL VALERATE PO SCH (09:03)
--- NOTE | 2017-11-29 10:32 | RAD ---
Date of service: 11/28/2017 HISTORY: Dizziness COMPARISON: No prior. FINDINGS: LUNGS: The lungs are well inflated and clear. PLEURA: No significant pleural effusion identified, no pneumothorax apparent. CARDIOVASCULAR: Normal. OSSEOUS STRUCTURES: No significant abnormalities. VISUALIZED UPPER ABDOMEN: Normal. OTHER FINDINGS: None. IMPRESSION: No active pulmonary disease.
[2017-11-29] MEDS ORDERED: Insulin Lispro (humaLOG) MEDIUM Coverage SC SCH (11:30)
[2017-11-29] MEDS: Insulin Regular 1 UNITS/0.01 ML ML SC SCH ×2 (11:54→16:15)
[2017-11-29 12:23] LABS: BLOOD UREA NITROGEN 8 mg/dL (7-21); CALCIUM 8.2 mg/dL (8.4-10.5); GFR NON-AFRICAN AMERICAN > 60
[2017-11-29] MEDS ORDERED: Insulin Regular 1 UNITS/0.01 ML ML SC ONE (13:51)
--- NOTE | 2017-11-29 13:55 | CP.PCM.PN ---
<Janice Singleton - Last Filed: 11/29/17 13:52> Subjective - Date & Time of Evaluation Date of Evaluation: 11/29/17 Time of Evaluation: 10:00 - Subjective Subjective: Janice Singleton, PGY2, Medicine Progress Note for Dr Mayers: Patient seen and examined at bedside. Patient admitted overnight for DKA. Patient states that she feels better today, reports less thirst, dizziness. Denies pain, nausea, vomiting, fevers, chills, abdominal pain, urinary symptoms. States that her vaginal bleeding is light, requiring less than 1 pad per day. States that she is hungry and would like to eat. Objective - Vital Signs/Intake and Output Vital Signs (last 24 hours): Temp Pulse Resp BP Pulse Ox 98 F 92 H 20 138/76 100 11/29/17 04:00 11/29/17 02:27 11/28/17 20:41 11/28/17 20:41 11/28/17 20:41 Intake and Output: 11/29/17 11/29/17 06:59 18:59 Intake Total 0 0 Output Total 550 Balance -550 0 - Medications Medications: Current Medications Fluconazole (Diflucan) 100 mg PO DAILY [facility] PRN Reason: Protocol Last Admin: 11/29/17 09:10 Dose: 100 mg Insulin Human Regular 100 (units/ Sodium Chloride) 100 mls @ 12 mls/hr IV .Q8H20M PRN; Protocol; 12 UNITS/HR PRN Reason: TITRATE PER MD ORDER Last Titration: 11/29/17 11:00 Dose: 0 units/hr, 0 mls/hr Sodium Chloride (Sodium Chloride 0.9%) 1,000 mls @ 100 mls/hr IV .Q10H [facility] Insulin Human Regular (Humulin R) 11 units SC AC MILADY Last Admin: 11/29/17 11:54 Dose: 11 units Insulin Human Regular (Humulin R) 15 units SC ONCE ONE Stop: 11/29/17 13:52 Insulin Human Regular (Humulin R High) 0 units SC ACHS MILADY PRN Reason: Protocol Non-Formulary Medication (Estradiol Valerate/Dienogest [Natazia 28 Tablet]) 1 each PO DAILY MILADY Last Admin: 11/29/17 09:03 Dose: 1 each Nystatin (Nystatin Oral Susp) 5 ml PO TID MILADY Last Admin: 11/29/17 13:22 Dose: 5 ml Pantoprazole Sodium (Protonix Inj) 40 mg IVP DAILY [facility] Last Admin: 11/29/17 09:03 Dose: 40 mg - Labs Labs: 11/29/17 04:30 11/29/17 12:00 PT 11.6 SECONDS (9.4-12.5) 11/28/17 16:45 INR 1.02 11/28/17 16:45 APTT 24.2 Seconds (25.1-36.5) L 11/28/17 16:45 - Constitutional Appears: Non-toxic, No Acute Distress - Head Exam Head Exam: ATRAUMATIC, NORMOCEPHALIC Additional comments: oral thrush - Eye Exam Eye Exam: EOMI, PERRL. absent: Conjunctival injection, Nystagmus, Scleral icterus Pupil Exam: NORMAL ACCOMODATION, PERRL. absent: Fixed, Irregular, Miosis, Unequal - ENT Exam ENT Exam: Mucous Membranes Moist - Neck Exam Neck Exam: Full ROM - Respiratory Exam Respiratory Exam: Clear to Ausculation Bilateral, NORMAL BREATHING PATTERN. absent: Accessory Muscle Use, Chest Wall Tenderness, Rales, Rhonchi, Wheezes, Respiratory Distress, Stridor - Cardiovascular Exam Cardiovascular Exam: RRR, +S1, +S2. absent: Murmur - GI/Abdominal Exam GI & Abdominal Exam: Soft, Normal Bowel Sounds. absent: Firm, Guarding, Rigid, Tenderness, Mass Additional comments: obese female, rounded abdomen - Extremities Exam Extremities Exam: Normal Inspection. absent: Calf Tenderness, Pedal Edema - Back Exam Back Exam: NORMAL INSPECTION - Neurological Exam Neurological Exam: Alert, Awake, Oriented x3 - Psychiatric Exam Psychiatric exam: Normal Affect, Normal Mood - Skin Skin Exam: Dry, Normal Color, Warm Assessment and Plan - Assessment and Plan (Free Text) Assessment: 27 year old female with PMH PCOS, presents with 3 weeks of vaginal bleeding and 1 week of generalized weakness, polydipsia, polyuria. Patient admitted to ICU for DKA, started on insulin drip, IVF. Patient's anion gap has now closed, will start on sq insulin, PO diet: DKA: - insulin drip turned off - BG 200s. Agap closed - carb consistent - heart healthy diet - levemir 35 units sq x1 - started on regular insulin 11 units ac and ISS high - monitor blood glucose - Photographs Curator consulted. - f/u Hgb A1C HLD: - lipid panel reviewed - advised healthy diet control, weight loss - started on lipitor 40 mg PO HS Vaginal Bleeding: - hemodynamically stable - Hgb 13.4 - light vaginal bleeding - Outpatient PROFILE SAW SETUP OPERATOR follow up recommendation on discharge Oral Thrush: -Continue Diflucan and Nystatin Oral Solution -HIV test pending results History of PCOS -Continue home [facility] Prophylaxis: Protonix DVT Prophylaxis: SCD's Patient seen and case discussed with Dr Mayers. <Neeraj Mayers - Last Filed: 11/29/17 14:41> Objective - Vital Signs/Intake and Output Vital Signs (last 24 hours): Temp Pulse Resp BP Pulse Ox 98 F 92 H 20 138/76 100 11/29/17 04:00 11/29/17 02:27 11/28/17 20:41 11/28/17 20:41 11/28/17 20:41 Intake and Output: 11/29/17 11/29/17 06:59 18:59 Intake Total 0 0 Output Total 550 Balance -550 0 - Medications Medications: Current Medications Atorvastatin Calcium (Lipitor) 40 mg PO DIN MIL[facility] Fluconazole (Diflucan) 100 mg PO DAILY [facility] PRN Reason: Protocol Last Admin: 11/29/17 09:10 Dose: 100 mg Insulin Human Regular 100 (units/ Sodium Chloride) 100 mls @ 12 mls/hr IV .Q8H20M PRN; Protocol; 12 UNITS/HR PRN Reason: TITRATE PER MD ORDER Last Titration: 11/29/17 11:00 Dose: 0 units/hr, 0 mls/hr Sodium Chloride (Sodium Chloride 0.9%) 1,000 mls @ 100 mls/hr IV .Q10H [facility] Insulin Human Regular (Humulin R) 11 units SC AC [facility] Last Admin: 11/29/17 11:54 Dose: 11 units Insulin Human Regular (Humulin R High) 0 units SC ACHS [facility] PRN Reason: Protocol Non-Formulary Medication (Estradiol Valerate/Dienogest [Natazia 28 Tablet]) 1 each PO DAILY [facility] Last Admin: 11/29/17 09:03 Dose: 1 each Nystatin (Nystatin Oral Susp) 5 ml PO TID [facility] Last Admin: 08/25/18 13:22 Dose: 5 ml Pantoprazole Sodium (Protonix Inj) 40 mg IVP DAILY [facility] Last Admin: 11/29/17 09:03 Dose: 40 mg - Labs Labs: 11/29/17 04:30 11/29/17 12:00 PT 11.6 SECONDS (9.4-12.5) 11/28/17 16:45 INR 1.02 11/28/17 16:45 APTT 24.2 Seconds (25.1-36.5) L 11/28/17 16:45 Attending/Attestation - Attestation I have personally seen and examined this patient.: Yes I have fully participated in the care of the patient.: Yes I have reviewed all pertinent clinical information, including history, physical exam and plan: Yes Notes (Text): 11/29/17 14:37 27 year old female with past medical history of PCOS who presented with complaint of generalized weakness, polyuria and polydipsia. She was found to have DKA and started on iv fluids and insulin drip. Hemoglobin A1c is pending. This morning her anion gap has closed; she is started on levemir and regular insulin. Will continue to monitor her fingersticks closely and adjust her insulin accordingly. Patient also initially complained of 3 weeks of vaginal bleeding which is subsiding. H/H has been stable. Recommended outpatient gynecology follow up. She is on lipitor for dyslipidemia. Counselled on weight loss and diet modifications. She is on nystatin for oral thrush. Neeraj Mayers MD Hospitalist.
[2017-11-29] MEDS: Sodium Chloride 0.9% 1,000 ML IV SCH ×2 (16:10→16:47)
[2017-11-29] MEDS: Insulin Reg-HIGH-Coverage SC SCH ×2 (16:14→22:21)
[2017-11-29 16:32] LABS: BLOOD UREA NITROGEN 8 mg/dL (7-21); CALCIUM 8.5 mg/dL (8.4-10.5); GFR NON-AFRICAN AMERICAN > 60
[2017-11-29] MEDS ORDERED: Insulin Detemir 100 units/ml Vial (Levemir) SC SCH (22:00)
[2017-11-30] MEDS: Sodium Chloride 0.9% 1,000 ML IV SCH (02:03)
[2017-11-30 06:19] LABS: BASO # 0.01 K/mm3 (0.0-2.0); BASO % 0.2 % (0.0-3.0); EOS % 0.2 % (1.5-5.0); GRAN # 3.48 (1.4-6.5); GRAN % 53.6 % (50.0-68.0); HEMOGLOBIN 12.1 g/dL (12.0-16.0); LYMPH # 2.3 (1.2-3.4); LYMPH % 35.1 % (22.0-35.0); MEAN CELL VOLUME 86.5 fl (80.0-105.0); MEAN CORPUSCULAR HEMOGLOBIN 29.7 pg (25.0-35.0); MEAN CORPUSCULAR HGB CONC 34.3 g/dl (31.0-37.0); MEAN PLATELET VOLUME 11.8 fl (7.0-11.0); MONO # 0.7 (0.1-0.6); MONO % 10.9 % (1.0-6.0); RBC 4.08 10^6/uL (3.5-6.1); RED CELL DISTRIBUTION WIDTH 12.6 % (11.5-14.5); WHITE BLOOD COUNT 6.5 10^3/ul (4.5-11.0)
[2017-11-30 06:46] LABS: ALB/GLOB RATIO 1.1 (1.1-1.8); ALBUMIN 3.2 g/dL (3.0-4.8); ALT/SGPT 22 U/L (7-56); AST/SGOT 19 U/L (14-36); BLOOD UREA NITROGEN 4 mg/dL (7-21); GFR NON-AFRICAN AMERICAN > 60
[2017-11-30] MEDS: Pantoprazole 40 mg EC Tab PO SCH (07:46)
[2017-11-30] MEDS: Insulin Regular 1 UNITS/0.01 ML ML SC SCH ×3 (08:04→16:57)
[2017-11-30] MEDS: Insulin Reg-HIGH-Coverage SC SCH ×4 (08:05→22:15)
[2017-11-30] MEDS: Nystatin 100,000 Units/ml Oral Susp 5 ml UD PO SCH ×3 (09:09→17:03)
[2017-11-30] MEDS: [UNRECOGNIZED DRUG - OTHER] PO SCH (09:09)
[2017-11-30] MEDS: ESTRADIOL VALERATE PO SCH (09:09)
--- NOTE | 2017-11-30 09:42 | PN ---
Copied To: Zack Shah MD Attending MD: Zack Shah MD DATE: 11/30/2017 TOP DYEING MACHINE LOADER NOTE LOCATION: At [facility] SUBJECTIVE: The patient is resting in bed, awake and alert. No complaints. No fever, chills, nausea or vomiting. No abdominal pain, chest pain. No diarrhea. She is off insulin and started on Levemir as well as coverage. The patient was hypokalemic this morning, potassium is being replaced. PHYSICAL EXAMINATION: VITAL SIGNS: Physical exam note that her temperature is 99, her pulse is 97, respirations are 21 and BP is 164/76. SKIN: Warm and dry. HEENT: Head atraumatic, normocephalic. Eyes reactive to light. Ears, nose and throat seemed to be within normal limits. NECK: Supple. No JVD. No thyroid enlargement. No lymph nodes. HEART: Has a regular rate and rhythm. Normal S1 and S2. LUNGS: Reveal good breath sounds bilaterally. ABDOMEN: Soft, nontender. Normal bowel sounds. No organomegaly noted. GENITALIA AND RECTAL: Deferred. MUSCULOSKELETAL: No joint deformities. EXTREMITIES: Reveal no edema. NEUROLOGICAL: She seemed to be grossly intact. LABORATORY DATA: As far as her laboratories, her white count is 6.5, hemoglobin is 12.1, hematocrit 35.3 with platelets of 202,000. Her sodium is 133, potassium 2.8, chloride 105, CO2 of 16, BUN of 4, creatinine of 0.5 and a glucose of 246. IMPRESSION: As far as impression, the patient presented with DKA, at this point is noted to be hypokalemic. She does have obesity and has had elevated blood pressures this morning as well. The patient did present with some vaginal bleeding. PLAN: As far as our plan, we will correct her potassium and follow her labs closely. The patient is being started on a meal. She is on Levemir as well as insulin coverage and her fingersticks will be followed. She was started on Norvasc this morning for her blood pressure and she is scheduled to be transferred to the regular medical floor. Zack Shah MD
[2017-11-30 13:13] LABS: BLOOD UREA NITROGEN 4 mg/dL (7-21); CALCIUM 7.7 mg/dL (8.4-10.5); GFR NON-AFRICAN AMERICAN > 60
--- NOTE | 2017-11-30 13:59 | CP.PCM.PN ---
<Nathaniel Ramirez - Last Filed: 11/30/17 13:55> Subjective - Date & Time of Evaluation Date of Evaluation: 11/30/17 Time of Evaluation: 13:55 - Subjective Subjective: Nathaniel Ramirez DO PGY1 - Internal Medicine [employer] - Hospital Progress Note Seen and examined at bedside in ICU; Patient has shown continued stabilization; no complaints voiced at time of exam. Tolerating PO diet well, no abd pain, N/V/D/C. No Chest pain, palpitations, abd pain, urinary discomfort, focal weakness, numbness/tingling. Objective - Vital Signs/Intake and Output Vital Signs (last 24 hours): Temp Pulse Resp BP Pulse Ox 99.0 F 82 24 155/97 H 100 11/29/17 12:00 11/30/17 09:09 11/30/17 08:10 11/30/17 09:09 11/30/17 08:21 Intake and Output: 11/30/17 11/30/17 06:59 18:59 Intake Total 1200 Balance 1200 - Medications Medications: Current Medications Amlodipine Besylate (Norvasc) 5 mg PO DAILY [facility] Last Admin: 11/30/17 09:09 Dose: 5 mg Atorvastatin Calcium (Lipitor) 40 mg PO DIN [facility] Last Admin: 11/29/17 16:48 Dose: 40 mg Fluconazole (Diflucan) 100 mg PO DAILY [facility] PRN Reason: Protocol Last Admin: 11/30/17 09:09 Dose: 100 mg Insulin Detemir (Levemir) 40 unit SC HS [facility] Insulin Human Regular (Humulin R High) 0 units SC ACHS [facility] PRN Reason: Protocol Last Admin: 11/30/17 11:37 Dose: 4 units Insulin Human Regular (Humulin R) 15 units SC AC [facility] Non-Formulary Medication (Estradiol Valerate/Dienogest [[place] 28 Tablet]) 1 each PO DAILY [facility] Last Admin: 11/30/17 09:09 Dose: 1 each Nystatin (Nystatin Oral Susp) 5 ml PO TID [facility] Last Admin: 11/30/17 13:06 Dose: 5 ml Pantoprazole Sodium (Protonix Ec Tab) 40 mg PO 0600 [facility] Last Admin: 11/30/17 07:46 Dose: 40 mg - Labs Labs: 11/30/17 05:30 11/30/17 12:40 PT 11.6 SECONDS (9.4-12.5) 11/28/17 16:45 INR 1.02 11/28/17 16:45 APTT 24.2 Seconds (25.1-36.5) L 11/28/17 16:45 Physical Exam - Constitutional Appears: Non-toxic, No Acute Distress, Lying in bed talking on phone, Comfortable - Head Exam Head Exam: ATRAUMATIC, NORMOCEPHALIC Additional comments: oral thrush - Eye Exam Eye Exam: EOMI, PERRL. absent: Conjunctival injection, Nystagmus, Scleral icterus Pupil Exam: NORMAL ACCOMODATION, PERRL. absent: Fixed, Irregular, Miosis, Unequal - ENT Exam ENT Exam: Mucous Membranes Moist - Neck Exam Neck Exam: Full ROM - Respiratory Exam Respiratory Exam: Clear to Ausculation Bilateral, NORMAL BREATHING PATTERN. absent: Accessory Muscle Use, Chest Wall Tenderness, Rales, Rhonchi, Wheezes, Respiratory Distress, Stridor - Cardiovascular Exam Cardiovascular Exam: RRR, +S1, +S2. absent: Murmur - GI/Abdominal Exam GI & Abdominal Exam: Soft, Normal Bowel Sounds. absent: Firm, Guarding, Rigid, Tenderness, Mass Additional comments: obese female, rounded abdomen - Extremities Exam Extremities Exam: Normal Inspection. absent: Calf Tenderness, Pedal Edema - Back Exam Back Exam: NORMAL INSPECTION - Neurological Exam Neurological Exam: Alert, Awake, Oriented x3 - Psychiatric Exam Psychiatric exam: Normal Affect, Normal Mood - Skin Skin Exam: Dry, Normal Color, Warm Assessment and Plan - Assessment and Plan (Free Text) Assessment: 27 year old female with PMH PCOS, presents with 3 weeks of vaginal bleeding and 1 week of generalized weakness, polydipsia, polyuria. Patient admitted to ICU for DKA, started on insulin drip, IVF. Patient's anion gap has now closed, will start on sq insulin, PO diet: DKA: - insulin drip turned off - BG 200s. Agap closed - carb consistent - heart healthy diet - levemir 35 last night; AM glucose 241 - Increased levemir to 40 HS - On regular insulin 11 units ac and ISS high; Required approx 17U of SS coverage - Increased to 15U AC; Continue on ISS HIgh - monitor blood glucose - Reliability Specialist consulted. - A1C 12.8 HypoKalemia: 2.8 - Repleted w/ 40meq this AM; - 3.6 post repletion - 20meq extra ordered - Reassess K+ and Mg in AM HLD: - lipid panel reviewed - advised healthy diet control, weight loss - started on lipitor 40 mg PO HS Vaginal Bleeding: - hemodynamically stable - Hgb 13.4 - light vaginal bleeding - Outpatient PREVENTIVE MAINTENANCE COORDINATOR follow up recommendation on discharge Oral Thrush: -Continue Diflucan and Nystatin Oral Solution -HIV test pending results History of PCOS -Continue home [place] GI Prophylaxis: Protonix DVT Prophylaxis: SCD's DISPO: Patient's DKA has stabilized, tolerating diet well, Hypokalemic this AM however has resolved; can transfer patient from ICU to Floors now that she is no longer critical. Patient seen and case discussed with Dr Mayers. Nathaniel Ramirez DO PGY1 Internal Medicine [facility] Progress Note <Neeraj Mayers - Last Filed: 11/30/17 14:57> Objective - Vital Signs/Intake and Output Vital Signs (last 24 hours): Temp Pulse Resp BP Pulse Ox 99.0 F 82 24 155/97 H 100 11/29/17 12:00 11/30/17 09:09 11/30/17 08:10 11/30/17 09:09 11/30/17 08:21 Intake and Output: 11/30/17 11/30/17 06:59 18:59 Intake Total 1200 Balance 1200 - Medications Medications: Current Medications Atorvastatin Calcium (Lipitor) 40 mg PO DIN [facility] Last Admin: 11/29/17 16:48 Dose: 40 mg Fluconazole (Diflucan) 100 mg PO DAILY [facility] PRN Reason: Protocol Last Admin: 11/30/17 09:09 Dose: 100 mg Potassium Chloride (Potassium Chloride 20 Meq/100 Ml) 20 meq in 100 mls @ 50 mls/hr IVPB ONCE ONE Stop: 11/30/17 16:05 Insulin Detemir (Levemir) 40 unit SC HS [facility] Insulin Human Regular (Humulin R High) 0 units SC ACHS [facility] PRN Reason: Protocol Last Admin: 11/30/17 11:37 Dose: 4 units Insulin Human Regular (Humulin R) 15 units SC AC [facility] Lisinopril (Zestril) 10 mg PO DAILY [facility] Mupirocin (Bactroban Ointment) 1 gm TOP BID [facility] Non-Formulary Medication (Estradiol Valerate/Dienogest [[place] 28 Tablet]) 1 each PO DAILY [facility] Last Admin: 11/30/17 09:09 Dose: 1 each Nystatin (Nystatin Oral Susp) 5 ml PO TID [facility] Last Admin: 11/30/17 13:06 Dose: 5 ml Pantoprazole Sodium (Protonix Ec Tab) 40 mg PO 0600 [facility] Last Admin: 11/30/17 07:46 Dose: 40 mg - Labs Labs: 11/30/17 05:30 11/30/17 12:40 PT 11.6 SECONDS (9.4-12.5) 11/28/17 16:45 INR 1.02 11/28/17 16:45 APTT 24.2 Seconds (25.1-36.5) L 11/28/17 16:45 Attending/Attestation - Attestation I have personally seen and examined this patient.: Yes I have fully participated in the care of the patient.: Yes I have reviewed all pertinent clinical information, including history, physical exam and plan: Yes Notes (Text): 11/30/17 14:55 27 year old female with past medical history of PCOS who presented with complaint of generalized weakness, polyuria and polydipsia. She was found to have DKA and started on iv fluids and insulin drip. Hemoglobin A1c is 12.8. She is on levemir and regular insulin. Will continue to monitor her fingersticks closely and adjust her insulin accordingly. Patient also initially complained of 3 weeks of vaginal bleeding which is subsiding. H/H has been stable. Recommended outpatient gynecology follow up. She is on lipitor for dyslipidemia and also started on lisinopril for hypertension. Counselled on weight loss and diet modifications. Will replete and repeat potassium for hypokalemia. She is on nystatin for oral thrush. Can downgrade from ICU today. Neeraj Mayers MD Hospitalist.
[2017-11-30] MEDS ORDERED: Potassium Chloride 20 mEq ER Tab PO ONE (15:28)
[2017-11-30] MEDS: Mupirocin 2% Ointment 15 GM TUBE TOP SCH (17:04)
[2017-11-30] MEDS ORDERED: Insulin Detemir 100 units/ml Vial (Levemir) SC SCH (22:00)
[2017-11-30 23:00] VITALS: RESP 20
[2017-12-01] MEDS: Pantoprazole 40 mg EC Tab PO SCH (05:34)
[2017-12-01 07:01] LABS: BASO # 0.01 K/mm3 (0.0-2.0); BASO % 0.2 % (0.0-3.0); EOS % 0.3 % (1.5-5.0); GRAN # 2.95 (1.4-6.5); GRAN % 45.5 % (50.0-68.0); HEMOGLOBIN 12.4 g/dL (12.0-16.0); LYMPH # 2.7 (1.2-3.4); LYMPH % 42.1 % (22.0-35.0); MEAN CELL VOLUME 86.5 fl (80.0-105.0); MEAN CORPUSCULAR HEMOGLOBIN 29.5 pg (25.0-35.0); MEAN CORPUSCULAR HGB CONC 34.1 g/dl (31.0-37.0); MEAN PLATELET VOLUME 12.2 fl (7.0-11.0); MONO # 0.8 (0.1-0.6); MONO % 11.9 % (1.0-6.0); RBC 4.21 10^6/uL (3.5-6.1); RED CELL DISTRIBUTION WIDTH 12.5 % (11.5-14.5); WHITE BLOOD COUNT 6.5 10^3/ul (4.5-11.0)
[2017-12-01 07:23] LABS: ALB/GLOB RATIO 1.1 (1.1-1.8); ALBUMIN 3.6 g/dL (3.0-4.8); ALT/SGPT 22 U/L (7-56); AST/SGOT 20 U/L (14-36); BLOOD UREA NITROGEN 4 mg/dL (7-21); CALCIUM 8.8 mg/dL (8.4-10.5); GFR NON-AFRICAN AMERICAN > 60
[2017-12-01] MEDS ORDERED: Potassium Chloride 20 mEq ER Tab PO STA (08:03)
[2017-12-01] MEDS ORDERED: Potassium Chloride 40 mEq/30 ml LIQ UD PO ONE ×2 (08:03→11:19)
[2017-12-01] MEDS: Insulin Reg-HIGH-Coverage SC SCH ×3 (08:11→16:30)
[2017-12-01] MEDS: Insulin Regular 1 UNITS/0.01 ML ML SC SCH ×3 (08:13→16:31)
[2017-12-01] MEDS: Nystatin 100,000 Units/ml Oral Susp 5 ml UD PO SCH ×3 (09:22→18:39)
[2017-12-01] MEDS: Mupirocin 2% Ointment 15 GM TUBE TOP SCH (09:23)
[2017-12-01] MEDS: ESTRADIOL VALERATE PO SCH (09:23)
[2017-12-01] MEDS: [UNRECOGNIZED DRUG - OTHER] PO SCH (09:23)
[2017-12-01 10:00] VITALS: BP 133/76; PULSE 84; TEMP 98.4; O2SAT 99
[2017-12-01] MEDS ORDERED: Potassium Chloride 20 mEq ER Tab PO ONE (15:46)
--- NOTE | 2017-12-01 17:24 | CP.PCM.DIS ---
<Olvin Calle - Last Filed: 12/01/17 17:15> Provider - Provider Date of Admission: 11/28/17 17:58 Attending physician: Neeraj Mayers MD Consults: Diabetic counselor Time Spent in preparation of Discharge (in minutes): 45 Hospital Course - Lab Results Lab Results: Micro Results 11/28/17 20:20 Blood Blood Culture - Preliminary NO GROWTH AFTER 48 HOURS 11/28/17 21:00 Nose MRSA Culture (Admit) - Final MRSA DETECTED 11/28/17 20:50 Urine,Clean Catch Urine Culture - Final No Growth (<1,000 CFU/ML) Most Recent Lab Values WBC 6.5 10^3/ul (4.5-11.0) 12/01/17 06:30 RBC 4.21 10^6/uL (3.5-6.1) 12/01/17 06:30 Hgb 12.4 g/dL (12.0-16.0) 12/01/17 06:30 Hct 36.4 % (36.0-48.0) 12/01/17 06:30 MCV 86.5 fl (80.0-105.0) 12/01/17 06:30 MCH 29.5 pg (25.0-35.0) 12/01/17 06:30 MCHC 34.1 g/dl (31.0-37.0) 12/01/17 06:30 RDW 12.5 % (11.5-14.5) 12/01/17 06:30 Plt Count 204 10^3/uL (120.0-450.0) 12/01/17 06:30 MPV 12.2 fl (7.0-11.0) H 12/01/17 06:30 Gran % 45.5 % (50.0-68.0) L 12/01/17 06:30 Lymph % (Auto) 42.1 % (22.0-35.0) H 12/01/17 06:30 [place] % (Auto) 11.9 % (1.0-6.0) H 12/01/17 06:30 Eos % (Auto) 0.3 % (1.5-5.0) L 12/01/17 06:30 Baso % (Auto) 0.2 % (0.0-3.0) 12/01/17 06:30 Gran # 2.95 (1.4-6.5) 12/01/17 06:30 Lymph # (Auto) 2.7 (1.2-3.4) 12/01/17 06:30 [place] # (Auto) 0.8 (0.1-0.6) H 12/01/17 06:30 Eos # (Auto) 0.0 (0.0-0.7) 12/01/17 06:30 Baso # (Auto) 0.01 K/mm3 (0.0-2.0) 12/01/17 06:30 PT 11.6 SECONDS (9.4-12.5) 11/28/17 16:45 INR 1.02 11/28/17 16:45 APTT 24.2 Seconds (25.1-36.5) L 11/28/17 16:45 pCO2 18 mm/Hg (35-45) L* 11/28/17 17:39 pO2 60 mm/Hg (30-55) H 11/29/17 04:30 HCO3 7.0 mmol/L (21-28) L* 11/28/17 17:39 ABG pH 7.20 (7.35-7.45) L 11/28/17 17:39 ABG Total CO2 7.6 mmol.L (22-28) L 11/28/17 17:39 ABG O2 Saturation 98.7 % (95-98) H 11/28/17 17:39 ABG Base Excess -18.8 mmol/L (-2.0-3.0) L 11/28/17 17:39 ABG Potassium 4.1 mmol/L (3.6-5.2) 11/28/17 17:39 VBG pH 7.25 (7.32-7.43) L 11/29/17 04:30 VBG pCO2 38.0 (40-60) L 11/29/17 04:30 VBG HCO3 16.7 mmol/l (21-28) L 11/29/17 04:30 VBG Total CO2 17.9 mmol.L (22-28) L 11/29/17 04:30 VBG O2 Sat (Calc) 92.1 % (40-65) H 11/29/17 04:30 VBG Base Excess -9.9 mmol/L (0.0-2.0) L 11/29/17 04:30 VBG Potassium 3.4 mmol/L (3.6-5.2) L 11/29/17 04:30 Sodium 136.0 mmol/L (132-148) 11/29/17 04:30 Chloride 106.0 mmol/L (98-107) 11/29/17 04:30 Glucose 197 mg/dl (65-105) H 11/29/17 04:30 Lactate 1.1 mmol/L (0.7-2.1) 11/29/17 04:30 FiO2 21.0 % 11/29/17 04:30 Sodium 135 mmol/L (132-148) 12/01/17 06:30 Potassium 3.2 mmol/L (3.6-5.0) L 12/01/17 15:15 Chloride 102 mmol/L (98-107) 12/01/17 06:30 Carbon Dioxide 18 mmol/L (21-33) L 12/01/17 06:30 Anion Gap 18 (10-20) 12/01/17 06:30 BUN 4 mg/dL (7-21) L 12/01/17 06:30 Creatinine 0.6 mg/dl (0.7-1.2) L 12/01/17 06:30 Est GFR ( Amer) > 60 12/01/17 06:30 Est GFR (Non-Af Amer) > 60 12/01/17 06:30 POC Glucose (mg/dL) 236 mg/dL (65-110) H 12/01/17 16:12 Random Glucose 226 mg/dL (70-110) H 12/01/17 06:30 Hemoglobin A1c 12.8 % (4.2-6.5) H 11/28/17 20:20 Serum Osmolality 324 mosm/kg (272-300) H 11/28/17 16:45 Calcium 8.8 mg/dL (8.4-10.5) 12/01/17 06:30 Magnesium 1.9 mg/dL (1.7-2.2) 12/01/17 06:30 Total Bilirubin 0.7 mg/dL (0.2-1.3) 12/01/17 06:30 AST 20 U/L (14-36) 12/01/17 06:30 ALT 22 U/L (7-56) 12/01/17 06:30 Alkaline Phosphatase 61 U/L (38-126) 12/01/17 06:30 Lactate Dehydrogenase 373 U/L (333-699) 11/28/17 16:45 Total Creatine Kinase 126 U/L (35-230) 11/28/17 16:45 Troponin I < 0.01 ng/mL 11/28/17 16:45 Total Protein 6.9 g/dL (5.8-8.3) 12/01/17 06:30 Albumin 3.6 g/dL (3.0-4.8) 12/01/17 06:30 Globulin 3.2 gm/dL 12/01/17 06:30 Albumin/Globulin Ratio 1.1 (1.1-1.8) 12/01/17 06:30 Triglycerides 187 mg/dL (35-160) H 11/28/17 20:20 Cholesterol 250 mg/dL (130-200) H 11/28/17 20:20 LDL Cholesterol Direct 175 mg/dL (0-129) H 11/28/17 20:20 HDL Cholesterol 39 mg/dL (29-60) 11/28/17 20:20 Arterial Blood Potassium 4.1 mmol/L (3.6-5.2) 11/28/17 17:39 Venous Blood Potassium 3.4 mmol/L (3.6-5.2) L 11/29/17 04:30 Urine Color Colorless (YELLOW) 11/28/17 16:45 Urine Appearance Clear (CLEAR) 11/28/17 16:45 Urine pH 6.0 (4.7-8.0) 11/28/17 16:45 Ur Specific [place] 1.015 (1.005-1.035) 11/28/17 16:45 Urine Protein Negative mg/dL (<30 mg/dL) 11/28/17 16:45 Urine Glucose (UA) >=1000 mg/dL (NEGATIVE) 11/28/17 16:45 Urine Ketones >=80 mg/dL (NEGATIVE) 11/28/17 16:45 Urine Blood Small (NEGATIVE) H 11/28/17 16:45 Urine Nitrate Negative (NEGATIVE) 11/28/17 16:45 Urine Bilirubin Negative (NEGATIVE) 11/28/17 16:45 Urine Urobilinogen 0.2 E.U./dL (<1 E.U./dL) 11/28/17 16:45 Ur Leukocyte Esterase Negative Janie/uL (NEGATIVE) 11/28/17 16:45 Urine RBC 10 - 15 /hpf (0-2) 11/28/17 16:45 Urine WBC 5 - 10 /hpf (0-6) 11/28/17 16:45 Ur Epithelial Cells 6 - 8 /hpf (0-5) 11/28/17 16:45 HIV 1&2 Ag/Ab, 4th Gen Nonreactive (Nonreactive) 11/28/17 18:24 Blood Type O POSITIVE 11/28/17 19:00 Blood Type Confirm O POSITIVE 11/28/17 20:00 Antibody Screen Negative 11/28/17 19:00 BBK History Checked No verified bt 11/28/17 19:00 - Hospital Course Hospital Course: 27 year old female with past medical history of PCOS presented with vaginal bleeding and polydipsia, polyuria, and generalized weakness. Patient was found to be in DKA, and was treated in the ICU. Once patient's gap was closed, she was taken to the floors and was treated on average with 15U of humalog (given over the course of a 24 hour period as sliding scale) and 40 units of levemir. On day of discharge, patient was advised to take 55 U bid of Relion insulin, as this would be the appropriate dosage based on 1 mg/kg of body weight. Patient was also advised of the importance of keeping her potassium at a normal level. Patient was given education from a diabetic counselor and expressed understanding of the instructions. Patient agreed to follow up with her HIV testing, her potassium, and her sugars as an outpatient. Discharge Exam - Head Exam Head Exam: ATRAUMATIC, NORMAL INSPECTION, NORMOCEPHALIC - Eye Exam Eye Exam: EOMI, Normal appearance, PERRL Pupil Exam: NORMAL ACCOMODATION, PERRL - Respiratory Exam Respiratory Exam: Clear to PA & Lateral, NORMAL BREATHING PATTERN, UNREMARKABLE - Cardiovascular Exam Cardiovascular Exam: REGULAR RHYTHM, +S1, +S2 - GI/Abdominal Exam GI & Abdominal Exam: Normal Bowel Sounds, Unremarkable - Extremities Exam Extremities exam: full ROM - Back Exam Back exam: FULL ROM. absent: CVA tenderness (L), CVA tenderness (R) - Neurological Exam Neurological exam: Alert, CN II-XII Intact, Normal Gait, Oriented x3, Reflexes Normal - Psychiatric Exam Psychiatric exam: Normal Affect, Normal Mood - Skin Skin Exam: Dry, Intact, Normal Color, Warm Discharge Plan - Discharge Medications Prescriptions: Atorvastatin [Lipitor] 40 mg PO DIN #30 tab Insulin NPH Hum/Reg Insulin Hm [Relion Novolin 70/30 70 U/ml-30 U/ml 10 ml] 55 units SC BID #1 vial Lisinopril [Zestril] 10 mg PO DAILY #30 tab Mupirocin 2% Ointment [Bactroban Ointment] 1 gm TOP BID #1 tube Potassium Chloride [Potassium Chloride Oral Soln] 40 meq PO DAILY #10 udc - Follow Up Plan Condition: CRITICAL Disposition: HOME/ ROUTINE Instructions: Diabetes Exchange Diet, Insulin Injection, Diabetes Type 2 (DC), Diabetic Meal Planning , Diabetic Ketoacidosis (DC) Additional Instructions: 1. Please follow up with a BMP outpatient with your primary care doctor 2. Please follow up your sugars and diabetes management with your primary care doctor 3. Please follow up your HIV test results 4. Should your symptoms recur or worsen, please return to the closest ED. <Neeraj Mayers - Last Filed: 12/01/17 17:35> Provider - Provider Date of Admission: 11/28/17 17:58 Attending physician: Neeraj Mayers MD Hospital Course - Lab Results Lab Results: Micro Results 11/28/17 20:20 Blood Blood Culture - Preliminary NO GROWTH AFTER 48 HOURS 11/28/17 21:00 Nose MRSA Culture (Admit) - Final MRSA DETECTED 11/28/17 20:50 Urine,Clean Catch Urine Culture - Final No Growth (<1,000 CFU/ML) Most Recent Lab Values WBC 6.5 10^3/ul (4.5-11.0) 12/01/17 06:30 RBC 4.21 10^6/uL (3.5-6.1) 12/01/17 06:30 Hgb 12.4 g/dL (12.0-16.0) 12/01/17 06:30 Hct 36.4 % (36.0-48.0) 12/01/17 06:30 MCV 86.5 fl (80.0-105.0) 12/01/17 06:30 MCH 29.5 pg (25.0-35.0) 12/01/17 06:30 MCHC 34.1 g/dl (31.0-37.0) 12/01/17 06:30 RDW 12.5 % (11.5-14.5) 12/01/17 06:30 Plt Count 204 10^3/uL (120.0-450.0) 12/01/17 06:30 MPV 12.2 fl (7.0-11.0) H 12/01/17 06:30 Gran % 45.5 % (50.0-68.0) L 12/01/17 06:30 Lymph % (Auto) 42.1 % (22.0-35.0) H 12/01/17 06:30 [place] % (Auto) 11.9 % (1.0-6.0) H 12/01/17 06:30 Eos % (Auto) 0.3 % (1.5-5.0) L 12/01/17 06:30 Baso % (Auto) 0.2 % (0.0-3.0) 12/01/17 06:30 Gran # 2.95 (1.4-6.5) 12/01/17 06:30 Lymph # (Auto) 2.7 (1.2-3.4) 12/01/17 06:30 [place] # (Auto) 0.8 (0.1-0.6) H 12/01/17 06:30 Eos # (Auto) 0.0 (0.0-0.7) 12/01/17 06:30 Baso # (Auto) 0.01 K/mm3 (0.0-2.0) 12/01/17 06:30 PT 11.6 SECONDS (9.4-12.5) 11/28/17 16:45 INR 1.02 11/28/17 16:45 APTT 24.2 Seconds (25.1-36.5) L 11/28/17 16:45 pCO2 18 mm/Hg (35-45) L* 11/28/17 17:39 pO2 60 mm/Hg (30-55) H 11/29/17 04:30 HCO3 7.0 mmol/L (21-28) L* 11/28/17 17:39 ABG pH 7.20 (7.35-7.45) L 11/28/17 17:39 ABG Total CO2 7.6 mmol.L (22-28) L 11/28/17 17:39 ABG O2 Saturation 98.7 % (95-98) H 11/28/17 17:39 ABG Base Excess -18.8 mmol/L (-2.0-3.0) L 11/28/17 17:39 ABG Potassium 4.1 mmol/L (3.6-5.2) 11/28/17 17:39 VBG pH 7.25 (7.32-7.43) L 11/29/17 04:30 VBG pCO2 38.0 (40-60) L 11/29/17 04:30 VBG HCO3 16.7 mmol/l (21-28) L 11/29/17 04:30 VBG Total CO2 17.9 mmol.L (22-28) L 11/29/17 04:30 VBG O2 Sat (Calc) 92.1 % (40-65) H 11/29/17 04:30 VBG Base Excess -9.9 mmol/L (0.0-2.0) L 11/29/17 04:30 VBG Potassium 3.4 mmol/L (3.6-5.2) L 11/29/17 04:30 Sodium 136.0 mmol/L (132-148) 11/29/17 04:30 Chloride 106.0 mmol/L (98-107) 11/29/17 04:30 Glucose 197 mg/dl (65-105) H 11/29/17 04:30 Lactate 1.1 mmol/L (0.7-2.1) 11/29/17 04:30 FiO2 21.0 % 11/29/17 04:30 Sodium 135 mmol/L (132-148) 12/01/17 06:30 Potassium 3.2 mmol/L (3.6-5.0) L 12/01/17 15:15 Chloride 102 mmol/L (98-107) 12/01/17 06:30 Carbon Dioxide 18 mmol/L (21-33) L 12/01/17 06:30 Anion Gap 18 (10-20) 12/01/17 06:30 BUN 4 mg/dL (7-21) L 12/01/17 06:30 Creatinine 0.6 mg/dl (0.7-1.2) L 12/01/17 06:30 Est GFR ( Amer) > 60 12/01/17 06:30 Est GFR (Non-Af Amer) > 60 12/01/17 06:30 POC Glucose (mg/dL) 236 mg/dL (65-110) H 12/01/17 16:12 Random Glucose 226 mg/dL (70-110) H 12/01/17 06:30 Hemoglobin A1c 12.8 % (4.2-6.5) H 11/28/17 20:20 Serum Osmolality 324 mosm/kg (272-300) H 11/28/17 16:45 Calcium 8.8 mg/dL (8.4-10.5) 12/01/17 06:30 Magnesium 1.9 mg/dL (1.7-2.2) 12/01/17 06:30 Total Bilirubin 0.7 mg/dL (0.2-1.3) 12/01/17 06:30 AST 20 U/L (14-36) 12/01/17 06:30 ALT 22 U/L (7-56) 12/01/17 06:30 Alkaline Phosphatase 61 U/L (38-126) 12/01/17 06:30 Lactate Dehydrogenase 373 U/L (333-699) 11/28/17 16:45 Total Creatine Kinase 126 U/L (35-230) 11/28/17 16:45 Troponin I < 0.01 ng/mL 11/28/17 16:45 Total Protein 6.9 g/dL (5.8-8.3) 12/01/17 06:30 Albumin 3.6 g/dL (3.0-4.8) 12/01/17 06:30 Globulin 3.2 gm/dL 12/01/17 06:30 Albumin/Globulin Ratio 1.1 (1.1-1.8) 12/01/17 06:30 Triglycerides 187 mg/dL (35-160) H 11/28/17 20:20 Cholesterol 250 mg/dL (130-200) H 11/28/17 20:20 LDL Cholesterol Direct 175 mg/dL (0-129) H 11/28/17 20:20 HDL Cholesterol 39 mg/dL (29-60) 11/28/17 20:20 Arterial Blood Potassium 4.1 mmol/L (3.6-5.2) 11/28/17 17:39 Venous Blood Potassium 3.4 mmol/L (3.6-5.2) L 11/29/17 04:30 Urine Color Colorless (YELLOW) 11/28/17 16:45 Urine Appearance Clear (CLEAR) 11/28/17 16:45 Urine pH 6.0 (4.7-8.0) 11/28/17 16:45 Ur Specific [place] 1.015 (1.005-1.035) 11/28/17 16:45 Urine Protein Negative mg/dL (<30 mg/dL) 11/28/17 16:45 Urine Glucose (UA) >=1000 mg/dL (NEGATIVE) 11/28/17 16:45 Urine Ketones >=80 mg/dL (NEGATIVE) 11/28/17 16:45 Urine Blood Small (NEGATIVE) H 11/28/17 16:45 Urine Nitrate Negative (NEGATIVE) 11/28/17 16:45 Urine Bilirubin Negative (NEGATIVE) 11/28/17 16:45 Urine Urobilinogen 0.2 E.U./dL (<1 E.U./dL) 11/28/17 16:45 Ur Leukocyte Esterase Negative Janie/uL (NEGATIVE) 11/28/17 16:45 Urine RBC 10 - 15 /hpf (0-2) 11/28/17 16:45 Urine WBC 5 - 10 /hpf (0-6) 11/28/17 16:45 Ur Epithelial Cells 6 - 8 /hpf (0-5) 11/28/17 16:45 HIV 1&2 Ag/Ab, 4th Gen Nonreactive (Nonreactive) 11/28/17 18:24 Blood Type O POSITIVE 11/28/17 19:00 Blood Type Confirm O POSITIVE 11/28/17 20:00 Antibody Screen Negative 11/28/17 19:00 BBK History Checked No verified bt 11/28/17 19:00 Attending/Attestation - Attestation I have personally seen and examined this patient.: Yes I have fully participated in the care of the patient.: Yes I have reviewed all pertinent clinical information, including history, physical exam and plan: Yes Notes (Text): 12/01/17 17:33 27 year old female with past medical history of PCOS who presented with complaint of generalized weakness, polyuria and polydipsia. She was found to have DKA and started on iv fluids and insulin drip. Hemoglobin A1c is 12.8. She was switched to levemir and regular insulin. She was seen by inclusion special educator today. Patient also initially complained of 3 weeks of vaginal bleeding which is subsiding. H/H has been stable. Recommended outpatient gynecology follow up. She is on lipitor for dyslipidemia and also started on lisinopril for hypertension. Counselled on weight loss and diet modifications. She was treated for hypokalemia and oral thrush. HIV test was negative. Patient is discharged home to follow up with her pmd. Monitor potassium level. Follow up with safety instruction police officer. Monitor fingersticks at home. Recommended yearly eye exams. Neeraj Mayers MD Hospitalist.
== END 2017-12-01 18:51 | disposition home or self-care (01) | DRG 295 ==
LOC: ED 15:46 → ERH 17:58 → ICU 20:57 → 3RNO 11-30 23:16 → 5RNO 11-30 23:17
PROVIDERS: ADMIT Internal Medicine; ATTEND Internal Medicine
DX: E11.10 Type 2 diabetes mellitus with ketoacidosis without coma (principal); B37.0 Candidal stomatitis; E87.6 Hypokalemia; E28.2 Polycystic ovarian syndrome; I10 Essential (primary) hypertension; E78.5 Hyperlipidemia, unspecified; E66.9 Obesity, unspecified; Z68.38 Body mass index [BMI] 38.0-38.9, adult; Z87.891 Personal history of nicotine dependence

== ENCOUNTER 2018-03-30 10:07 | Emergency (ER) | payer OTHER ==
--- NOTE | 2018-03-30 10:18 | ED PDOC ---
History of Present Illness History of Present Illness: 27 year old female with PMH of Diabetes presents to the emergency department complaining of general myalgias, headache, tactile fever, and chills x 4 days. Headache is frontal, dull, intermittent. Admits to not drinking much water recently. Compliant with medications. No sick contacts or recent travel. Denies flu shot. On OCPs. No immobilization, surgery, no h/o DVT/PE. Currently menstr uating. Has not taken any medication for pain. Denies SOB, chest pain, cough, abdominal pain, N/V, vision changes, dizziness, weakness, numbness, paresthesias, urinary symptoms, back pain, neck pain, calf swelling, calf pain, or any other associated symptoms. HPI: Influenza Time Seen by Provider: 03/30/18 10:25 Chief Complaint: Flu-like Symptoms History Per: Patient Exam Limitations: no limitations Have you had recent travel within the past 21 days to any of the following countries: [place], [place], [place] or [place]?: No Onset/Duration Of Symptoms: Days Symptoms include: fever, headache, bodyaches, nasal congestion Sick Contacts (Context): None Hx Influenza Vaccination: No Past Medical History - Provider Review Nursing Documentation Reviewed: Yes - Infectious Disease Hx of Infectious Diseases: None - Cardiac Hx Cardiac Disorders: No - Pulmonary Hx Respiratory Disorders: No - Neurological Hx Neurological Disorder: No - HEENT Hx HEENT Disorder: No - Renal Hx Renal Disorder: No - Endocrine/Metabolic Hx Endocrine Disorders: No - Hematological/Oncological Hx Blood Disorders: No - Integumentary Hx Dermatological Disorder: No - Musculoskeletal/Rheumatological Hx Musculoskeletal Disorders: No - Gastrointestinal Hx Gastrointestinal Disorders: No - Genitourinary/Gynecological Hx Genitourinary Disorders: Yes Other/Comment: PCOS - Psychiatric Hx Psychophysiologic Disorder: No Hx Substance Use: No - Anesthesia Hx Anesthesia: No Hx Anesthesia Reactions: No Hx Malignant Hyperthermia: No Patient Medical History - Provider Review Nursing Documentation Reviewed: Yes - Infectious Disease Hx of Infectious Diseases: None Family/Social History - Physician Review Nursing Documentation Reviewed: Yes Family/Social History: No Known Family HX Smoking Status: Light Smoker < 10 Cigarettes Daily Hx Alcohol Use: Yes Hx Substance Use: No Allergies/Home Meds Allergies/Adverse Reactions: Allergies No Known Allergies Allergy (Verified 03/30/18 10:27) Home Medications: Home Meds Medication Instructions Recorded Confirmed Estradiol Valerate/Dienogest 1 each PO DAILY 11/28/17 11/28/17 [Natazia 28 Tablet] Fluconazole [Diflucan] 100 mg PO DAILY 11/28/17 11/28/17 Nystatin [Nystatin Oral Susp] 5 ml PO TID 11/28/17 11/28/17 Spironolactone [Aldactone] 200 mg PO DAILY 11/28/17 11/28/17 Review of Systems - Physician Review All systems were reviewed & negative as marked: Yes - Review of Systems Constitutional: Fevers Eyes: Normal. absent: Vision Changes, Photophobia ENT: Normal. absent: Sore Throat, Sinus Congestion Respiratory: Cough. absent: SOB, Sputum Cardiovascular: Normal. absent: Chest Pain, Palpitations, Syncope Gastrointestinal: Normal. absent: Abdominal Pain, Nausea, Vomiting Genitourinary Female: Normal Musculoskeletal: Arthralgias (right knee pain ), Myalgias (generalized). absent: Back Pain Skin: Normal. absent: Rash Neurological: Headache. absent: Dizziness, Focal Weakness, Gait Changes, Seizure Endocrine: Normal Hemo/Lymphatic: Normal Psychiatric: Normal Physical Exam Vital Signs Reviewed: Yes Temperature: Afebrile Blood Pressure: Hypertensive Pulse: Regular Respiratory Rate: Normal Appearance: Positive for: Well-Appearing, Non-Toxic, Comfortable Pain Distress: None Mental Status: Positive for: Alert and Oriented X 3 Finger Stick Blood Glucose: 87 - Systems Exam Head: Present: Atraumatic, Normocephalic Pupils: Present: PERRL Extroacular Muscles: Present: EOMI Conjunctiva: Present: Normal Ears: Present: Normal, NORMAL TM Mouth: Present: Moist Mucous Membranes Pharnyx: Present: Normal. No: ERYTHEMA, EXUDATE, TONSILS ENLARGED Nose (External): Present: Atraumatic Nose (Internal): Present: Normal Inspection Neck: Present: Normal Range of Motion. No: Meningeal Signs, MIDLINE TENDERNESS, Paraspinal Tenderness, Lymphadenopathy Respiratory/Chest: Present: Clear to Auscultation, Good Air Exchange. No: Respiratory Distress, Accessory Muscle Use Cardiovascular: Present: Regular Rate and Rhythm, Normal S1, S2. No: Murmurs Abdomen: Present: Normal Bowel Sounds. No: Tenderness, Distention, Peritoneal Signs, Rebound, Guarding Back: Present: Normal Inspection. No: CVA Tenderness, Midline Tenderness, Paraspinal Tenderness Upper Extremity: Present: Normal Inspection, Normal ROM, NORMAL PULSES, Neur ovascularly Intact, Capillary Refill < 2s. No: Cyanosis, Edema Lower Extremity: Present: NORMAL PULSES, Normal ROM, Swelling (right knee, mild ), Neurovascularly Intact, Capillary Refill < 2 s. No: Edema, CALF TENDERNESS, Brianna's Sign, Tenderness Neurological: Present: GCS=15, CN II-XII Intact, Speech Normal, Motor Func Grossly Intact, Normal Sensory Function, Gait Normal Skin: Present: Warm, Dry, Normal Color. No: Rashes Lymphatic: No: Cervical Adenopathy Psychiatric: Present: Alert, Oriented x 3, Normal Insight, Normal Concentration, Normal Affect, Normal Mood Medical Decision Making ED Course and Treatment: 03/30/18 10:12 Initial Plan: * CBC, CMP * UA, culture * CXR * Right leg venous duplex Duplex negative for DVT Elevated LFTs, will test patient for mono. Otherwise asymptomatic, no abdominal pain. Patient made aware, recommend followup with PMD. Patient reports resolution of headache after ibuprofen. Oral hydration, patient drinking cups of water and tolerating jarod crackers without vomiting or abdominal pain. Case discussed with emergency department attending Dr. Nunez, lab results reviewed. Recommends discharge with antibiotics for UTI. Diagnostic testing and plan of care discussed with patient. Strict instructions given regarding prescription use, importance of followup, and signs/symptoms to return to ER including abdominal pain, SOB, CP, or any other new/worsening sy mptoms. Patient verbalizes understanding of instructions and was given the opportunity to ask questions. Patient A&Ox3, ambulating with steady gait, with vital signs stable for discharge. - Lab Interpretations Lab Results: 03/30/18 11:42 03/30/18 11:42 Lab Results 03/30/18 11:42: Sodium 136, Potassium 4.1, Chloride 101, Carbon Dioxide 24, Anion Gap 15, BUN 9, Creatinine 0.6 L, Est GFR ( Amer) > 60, Est GFR (Non-Af Amer) > 60, Random Glucose 93, Calcium 9.4, Total Bilirubin 1.2, AST 154 H D, ALT 173 H, Alkaline Phosphatase 111, Total Protein 8.6 H, Albumin 4.4, Globulin 4.3, Albumin/Globulin Ratio 1.0 L 03/30/18 11:42: WBC 5.2, RBC 4.31, Hgb 12.7, Hct 38.6, MCV 89.6 D, MCH 29.5, MCHC 32.9, RDW 12.8, Plt Count 242, MPV 10.8, Gran % 63.4, Lymph % (Auto) 25.2, Lewis % (Auto) 11.2 H, Eos % (Auto) 0.2 L, Baso % (Auto) 0.0, Gran # 3.29, Lymph # (Auto) 1.3, Lewis # (Auto) 0.6, Eos # (Auto) 0.0, Baso # (Auto) 0.00 03/30/18 11:15: Urine Color Yellow, Urine Appearance Turbid, Urine pH 6.5, Ur Specific [place] >= 1.030, Urine Protein 100 H, Urine Glucose (UA) Negative, Urine Ketones >=80, Urine Blood Large H, Urine Nitrate Positive H, Urine Bilirubin Moderate H, Urine Urobilinogen 4.0 H, Ur Leukocyte Esterase Negative, Urine RBC Tntc H, Urine WBC 0 - 2, Ur Epithelial Cells 0 - 2, Urine Bacteria Mod 03/30/18 10:30: Influenza Typ A,B (EIA) Negative for flu a/b 03/30/18 10:29: POC Glucose (mg/dL) 101 I have reviewed the lab results: Yes - RAD Interpretation Narrative RAD Interpretations (Text): 03/30/18 14:08 CXR: FINDINGS: LUNGS: No active pulmonary disease PLEURA: No significant pleural effusion identified. No pneumothorax apparent. CARDIOVASCULAR: No aortic atherosclerotic calcification present. Normal cardiac size. No pulmonary vascular congestion. OSSEOUS STRUCTURES: No significant abnormalities. VISUALIZED UPPER ABDOMEN: Normal. OTHER FINDINGS: None. IMPRESSION: No active disease. 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 Ulcer: No History Surgical Site Infection Following: None - Disposition Have Diagnosis and Disposition been Completed?: Yes Diagnosis: UTI (urinary tract infection), Viral syndrome Disposition: HOME/ ROUTINE Disposition Time: 14:24 Condition: IMPROVED Discharge Instructions (ExitCare): Urinary Tract Infections in Adults, Viral Syndrome (DC) Additional Instructions: Increase fluids to stay hydrated Tylenol/ibuprofen for headache and fever Followup with primary doctor within 1-2 days Return to ER for any new/worsening symptoms Prescriptions: Cephalexin [Keflex] 500 mg PO Q12H 7 Days #14 capsule Referrals: [facility] at [facility] [place] - Follow up with primary Marixa Carranza MD [Medical Doctor] - Follow up with primary Forms: [employer] (Nepalese), WORK NOTE
[2018-03-30 10:23] VITALS: BMI 39.1
[2018-03-30 10:27] VITALS: TEMP 99.1
[2018-03-30 11:57] LABS: EOS % 0.2 % (1.5-5.0); GRAN # 3.29 (1.4-6.5); GRAN % 63.4 % (50.0-68.0); HEMOGLOBIN 12.7 g/dL (12.0-16.0); LYMPH # 1.3 (1.2-3.4); LYMPH % 25.2 % (22.0-35.0); MEAN CELL VOLUME 89.6 fl (80.0-105.0); MEAN CORPUSCULAR HEMOGLOBIN 29.5 pg (25.0-35.0); MEAN CORPUSCULAR HGB CONC 32.9 g/dl (31.0-37.0); MEAN PLATELET VOLUME 10.8 fl (7.0-11.0); MONO # 0.6 (0.1-0.6); MONO % 11.2 % (1.0-6.0); RBC 4.31 10^6/uL (3.5-6.1); RED CELL DISTRIBUTION WIDTH 12.8 % (11.5-14.5); WHITE BLOOD COUNT 5.2 10^3/uL (4.5-11.0)
[2018-03-30] MEDS ORDERED: Sodium Chloride 0.9% 1,000 ML IV STA ×2 (11:57)
[2018-03-30 12:05] LABS: ALBUMIN 4.4 g/dL (3.0-4.8); ALT/SGPT 173 U/L (7-56); AST/SGOT 154 U/L (14-36); BLOOD UREA NITROGEN 9 mg/dL (7-21); CALCIUM 9.4 mg/dL (8.4-10.5); GFR NON-AFRICAN AMERICAN > 60
[2018-03-30 13:44] LABS: PH,URINE 6.5 (4.7-8.0); URINE BILIRUBIN MODERATE (NEGATIVE); URINE BLOOD LARGE (NEGATIVE); URINE GLUCOSE (UA) NEGATIVE (NEGATIVE); URINE LEUKOCYTE ESTERASE NEGATIVE Leu/uL (NEGATIVE); URINE PROTEIN 100 mg/dL (<30 mg/dL)
[2018-03-30 13:47] LABS: URINE APPEARANCE TURBID (CLEAR); URINE COLOR YELLOW (YELLOW)
[2018-03-30 13:50] LABS: URINE BACTERIA MOD /hpf; URINE EPITHELIAL CELLS 0 - 2 /hpf (0-5); URINE RBC TNTC /hpf (0-2); URINE WBC 0 - 2 /hpf (0-6)
--- NOTE | 2018-03-30 14:10 | RAD ---
Date of service: 03/30/2018 HISTORY: r/o PNA COMPARISON: 11/28/2017 TECHNIQUE: Chest PA and lateral FINDINGS: LUNGS: No active pulmonary disease. PLEURA: No significant pleural effusion identified. No pneumothorax apparent. CARDIOVASCULAR: No aortic atherosclerotic calcification present. Normal cardiac size. No pulmonary vascular congestion. OSSEOUS STRUCTURES: No significant abnormalities. VISUALIZED UPPER ABDOMEN: Normal. OTHER FINDINGS: None. IMPRESSION: No active disease.
[2018-03-30 14:18] VITALS: BP 133/88; PULSE 90; RESP 18; O2SAT 98
--- NOTE | 2018-03-30 16:09 | US ---
PROCEDURE: Right lower extremity venous US HISTORY: Leg pain and swelling. Evaluate for DVT. PHYSICIAN(S): Hunter Peterson M.D. TECHNIQUE: Duplex sonography and color-flow Doppler with graded compression were used to evaluate the deep venous system of the right lower extremity. FINDINGS: The visualized deep venous system of the right lower extremity is sonographically normal and compressible. Normal waveforms and augmentation are seen. There is no sonographic evidence for deep venous thrombosis in the visualized segments of the right lower extremity. IMPRESSION: 1. No sonographic evidence for deep venous thrombosis in the visualized segments of the right lower extremity.
== END 2018-03-30 14:27 | disposition home or self-care (01) ==
LOC: ED 10:07
DX: N39.0 Urinary tract infection, site not specified (principal); B34.9 Viral infection, unspecified; F17.210 Nicotine dependence, cigarettes, uncomplicated; E11.9 Type 2 diabetes mellitus without complications